=== PATIENT | female | born 1945 | race Caucasian/White ===

== ENCOUNTER 2018-09-18 08:05 | Observation (INO) | payer MEDICARE ==
[2018-09-18] MEDS ORDERED: SODIUM CHLORIDE 0.9% 1,000 ML IV STA ×2 (08:58→11:01)
--- NOTE | 2018-09-18 09:02 | ED ---
General Adult HPI - General Chief complaint: Recheck/Abnormal Lab/Rx Stated complaint: dehydration Time Seen by Provider: 09/18/18 08:18 Source: patient, family, RN notes reviewed Mode of arrival: wheelchair Limitations: no limitations - History of Present Illness Initial comments: Patient is a pleasant 72-year-old female presenting to the emergency department with family. Family has concerns for dehydration. Patient has been somewhat depressed since February when a family member left town. Family member left town to go to college. Patient has been not eating as much over the past couple of months and has been losing weight. Patient did go to the doctor last week. Blood work was drawn and patient was diagnosed with ear infection. Patient did start amoxicillin with improvement of symptoms of ear infection. Patient does admit to having decreased appetite. Patient denies any nausea or vomiting or abdominal pain. Patient was also started on an antidepressant. - Related Data Home Medications Medication Instructions Recorded Confirmed Cefdinir [Omnicef Oral Susp] 6 ml PO BID 09/18/18 09/18/18 Cetirizine HCl [Zyrtec] 10 mg PO HS 09/18/18 09/18/18 Ciprofloxacin-Dexameth [Ciprodex 4 drops BOTH EARS BID 09/18/18 09/18/18 Otic Susp] Escitalopram Oxalate [Lexapro] 10 mg PO HS 09/18/18 09/18/18 Timolol 0.5% Ophth Soln [Timoptic 1 drop LEFT EYE DAILY 09/18/18 09/18/18 0.5% Ophth Soln] Allergies Allergy/AdvReac Type Severity Reaction Status Date / Time ibuprofen Allergy Unknown Verified 09/18/18 09:06 Review of Systems ROS Statement: Those systems with pertinent positive or pertinent negative responses have been documented in the HPI. ROS Other: All systems not noted in ROS Statement are negative. Constitutional: Denies: fever Eyes: Denies: eye pain ENT: Denies: ear pain Respiratory: Denies: dyspnea Cardiovascular: Denies: chest pain Endocrine: Denies: fatigue Gastrointestinal: Denies: abdominal pain, vomiting Genitourinary: Denies: dysuria Musculoskeletal: Denies: back pain Skin: Denies: rash Neurological: Denies: weakness Psychiatric: Reports: depression Past Medical History Additional Past Medical History / Comment(s): cataracts History of Any Multi-Drug Resistant Organisms: None Reported Additional Past Surgical History / Comment(s): eye Past Psychological History: Anxiety, Depression Smoking Status: Never smoker Past Alcohol Use History: None Reported Past Drug Use History: None Reported General Exam Limitations: no limitations General appearance: alert, in no apparent distress Head exam: Present: atraumatic Eye exam: Present: normal appearance, PERRL, EOMI ENT exam: Present: normal oropharynx, TM's normal bilaterally Neck exam: Present: normal inspection Respiratory exam: Present: normal lung sounds bilaterally Cardiovascular Exam: Present: regular rate, normal rhythm Expanded Peripheral pulses: 2+: Radial (R), Radial (L), Dorsalis Pedis (R), Dorsalis Pedis (L) GI/Abdominal exam: Present: soft. Absent: tenderness Extremities exam: Present: normal inspection. Absent: pedal edema, calf tenderness Back exam: Present: normal inspection Neurological exam: Present: alert. Absent: motor sensory deficit Psychiatric exam: Present: normal affect, normal mood Skin exam: Present: normal color Course Vital Signs 09/18/18 09/18/18 09/18/18 08:06 09:47 10:00 Temperature 97.9 F Pulse Rate 121 H 93 Respiratory 18 Rate Blood Pressure 99/61 136/72 136/72 O2 Sat by Pulse 98 99 98 Oximetry 09/18/18 09/18/18 10:30 11:00 Temperature Pulse Rate 92 96 Respiratory Rate Blood Pressure 126/81 120/73 O2 Sat by Pulse 96 Oximetry EKG Findings - EKG Comments: EKG Findings:: Normal sinus rhythm and 93. NE 140. QRS 72. QT 352. QTC 437. Normal axis. Normal QRS. No acute ST change. Medical Decision Making - Medical Decision Making Patient reevaluated and resting comfortably in bed. Patient and family updated on results. Patient does have abnormal blood work and will need further evaluation with oncology. Please review previous lab orders regarding CA 125 and others. Case was discussed in detail with Dr. calvo, who will admit cover ing for Dr. Quinteros. Patient does meet sepsis criteria diagnosed at 11:20 AM. Blood culture and lactic acid and IV antibiotics have all been ordered. - Lab Data Result diagrams: 09/18/18 09:11 09/18/18 09:11 Lab Results 09/18/18 09/18/18 09/18/18 Range/Units 09:11 09:11 09:11 WBC 11.4 H (3.8-10.6) k/uL RBC 3.56 L (3.80-5.40) m/uL Hgb 10.2 L (11.4-16.0) gm/dL Hct 32.7 L (34.0-46.0) % MCV 91.9 (80.0-100.0) fL MCH 28.6 (25.0-35.0) pg MCHC 31.2 (31.0-37.0) g/dL RDW 17.3 H (11.5-15.5) % Plt Count 404 (150-450) k/uL Neutrophils % (Manual) 60 % Band Neutrophils % 2 % Lymphocytes % (Manual) 27 % Monocytes % (Manual) 3 % Metamyelocytes % 3 % Myelocytes % 5 % Blast Cells % 1 H* % Neutrophils # (Manual) 7.00 (1.3-7.7) k/uL Lymphocytes # (Manual) 3.08 (1.0-4.8) k/uL Monocytes # (Manual) 0.34 (0-1.0) k/uL Metamyelocytes # (Man) 0.34 H (0) k/uL Myelocytes # (Manual) 0.57 H (0) k/uL Blast Cells # (Man) 0.11 H (0) k/uL Nucleated RBCs 2 H (0-0) /100 WBC Manual Slide Review Performed Toxic Granulation Present Polychromasia Present Hypochromasia Moderate Poikilocytosis (manual Present Anisocytosis Slight PT (9.0-12.0) sec INR (<1.2) APTT (22.0-30.0) sec Sodium 140 (137-145) mmol/L Potassium 3.6 (3.5-5.1) mmol/L Chloride 104 (98-107) mmol/L Carbon Dioxide 29 (22-30) mmol/L Anion Gap 7 mmol/L BUN 17 (7-17) mg/dL Creatinine 0.46 L (0.52-1.04) mg/dL Est GFR (CKD-EPI)AfAm >90 (>60 ml/min/1.73 sqM) Est GFR (CKD-EPI)NonAf >90 (>60 ml/min/1.73 sqM) Glucose 112 H (74-99) mg/dL Plasma Lactic Acid Eusebio 2.9 H* (0.7-2.0) mmol/L Calcium 8.7 (8.4-10.2) mg/dL Phosphorus 2.5 (2.5-4.5) mg/dL Magnesium 2.2 (1.6-2.3) mg/dL Total Bilirubin 0.8 (0.2-1.3) mg/dL AST 94 H (14-36) U/L ALT 26 (9-52) U/L Alkaline Phosphatase 334 H (38-126) U/L Creatine Kinase 40 (30-135) U/L Troponin I (0.000-0.034) ng/mL Total Protein 5.7 L (6.3-8.2) g/dL Albumin 2.7 L (3.5-5.0) g/dL Amylase (30-110) U/L Lipase (23-300) U/L TSH 3.340 (0.465-4.680) mIU/L Free T4 1.68 (0.78-2.19) ng/dL Free T3 pg/mL 3.1 (2.8-5.3) pg/ml Urine Color Urine Appearance (Clear) Urine pH (5.0-8.0) Ur Specific [place] (1.001-1.035) Urine Protein (Negative) Urine Glucose (UA) (Negative) Urine Ketones (Negative) Urine Blood (Negative) Urine Nitrite (Negative) Urine Bilirubin (Negative) Urine Urobilinogen (<2.0) mg/dL Ur Leukocyte Esterase (Negative) Urine RBC (0-5) /hpf Urine WBC (0-5) /hpf Amorphous Sediment (None) /hpf Urine Bacteria (None) /hpf Hyaline Casts (0-2) /lpf Urine Mucus (None) /hpf 09/18/18 09/18/18 09/18/18 Range/Units 09:11 09:11 09:11 WBC (3.8-10.6) k/uL RBC (3.80-5.40) m/uL Hgb (11.4-16.0) gm/dL Hct (34.0-46.0) % MCV (80.0-100.0) fL MCH (25.0-35.0) pg MCHC (31.0-37.0) g/dL RDW (11.5-15.5) % Plt Count (150-450) k/uL Neutrophils % (Manual) % Band Neutrophils % % Lymphocytes % (Manual) % Monocytes % (Manual) % Metamyelocytes % % Myelocytes % % Blast Cells % % Neutrophils # (Manual) (1.3-7.7) k/uL Lymphocytes # (Manual) (1.0-4.8) k/uL Monocytes # (Manual) (0-1.0) k/uL Metamyelocytes # (Man) (0) k/uL Myelocytes # (Manual) (0) k/uL Blast Cells # (Man) (0) k/uL Nucleated RBCs (0-0) /100 WBC Manual Slide Review Toxic Granulation Polychromasia Hypochromasia Poikilocytosis (manual Anisocytosis PT 11.6 (9.0-12.0) sec INR 1.1 (<1.2) APTT 26.3 (22.0-30.0) sec Sodium (137-145) mmol/L Potassium (3.5-5.1) mmol/L Chloride (98-107) mmol/L Carbon Dioxide (22-30) mmol/L Anion Gap mmol/L BUN (7-17) mg/dL Creatinine (0.52-1.04) mg/dL Est GFR (CKD-EPI)AfAm (>60 ml/min/1.73 sqM) Est GFR (CKD-EPI)NonAf (>60 ml/min/1.73 sqM) Glucose (74-99) mg/dL Plasma Lactic Acid Eusebio (0.7-2.0) mmol/L Calcium (8.4-10.2) mg/dL Phosphorus (2.5-4.5) mg/dL Magnesium (1.6-2.3) mg/dL Total Bilirubin (0.2-1.3) mg/dL AST (14-36) U/L ALT (9-52) U/L Alkaline Phosphatase (38-126) U/L Creatine Kinase (30-135) U/L Troponin I <0.012 (0.000-0.034) ng/mL Total Protein (6.3-8.2) g/dL Albumin (3.5-5.0) g/dL Amylase 33 (30-110) U/L Lipase 158 (23-300) U/L TSH (0.465-4.680) mIU/L Free T4 (0.78-2.19) ng/dL Free T3 pg/mL (2.8-5.3) pg/ml Urine Color Urine Appearance (Clear) Urine pH (5.0-8.0) Ur Specific [place] (1.001-1.035) Urine Protein (Negative) Urine Glucose (UA) (Negative) Urine Ketones (Negative) Urine Blood (Negative) Urine Nitrite (Negative) Urine Bilirubin (Negative) Urine Urobilinogen (<2.0) mg/dL Ur Leukocyte Esterase (Negative) Urine RBC (0-5) /hpf Urine WBC (0-5) /hpf Amorphous Sediment (None) /hpf Urine Bacteria (None) /hpf Hyaline Casts (0-2) /lpf Urine Mucus (None) /hpf 09/18/18 Range/Units 09:45 WBC (3.8-10.6) k/uL RBC (3.80-5.40) m/uL Hgb (11.4-16.0) gm/dL Hct (34.0-46.0) % MCV (80.0-100.0) fL MCH (25.0-35.0) pg MCHC (31.0-37.0) g/dL RDW (11.5-15.5) % Plt Count (150-450) k/uL Neutrophils % (Manual) % Band Neutrophils % % Lymphocytes % (Manual) % Monocytes % (Manual) % Metamyelocytes % % Myelocytes % % Blast Cells % % Neutrophils # (Manual) (1.3-7.7) k/uL Lymphocytes # (Manual) (1.0-4.8) k/uL Monocytes # (Manual) (0-1.0) k/uL Metamyelocytes # (Man) (0) k/uL Myelocytes # (Manual) (0) k/uL Blast Cells # (Man) (0) k/uL Nucleated RBCs (0-0) /100 WBC Manual Slide Review Toxic Granulation Polychromasia Hypochromasia Poikilocytosis (manual Anisocytosis PT (9.0-12.0) sec INR (<1.2) APTT (22.0-30.0) sec Sodium (137-145) mmol/L Potassium (3.5-5.1) mmol/L Chloride (98-107) mmol/L Carbon Dioxide (22-30) mmol/L Anion Gap mmol/L BUN (7-17) mg/dL Creatinine (0.52-1.04) mg/dL Est GFR (CKD-EPI)AfAm (>60 ml/min/1.73 sqM) Est GFR (CKD-EPI)NonAf (>60 ml/min/1.73 sqM) Glucose (74-99) mg/dL Plasma Lactic Acid Eusebio (0.7-2.0) mmol/L Calcium (8.4-10.2) mg/dL Phosphorus (2.5-4.5) mg/dL Magnesium (1.6-2.3) mg/dL Total Bilirubin (0.2-1.3) mg/dL AST (14-36) U/L ALT (9-52) U/L Alkaline Phosphatase (38-126) U/L Creatine Kinase (30-135) U/L Troponin I (0.000-0.034) ng/mL Total Protein (6.3-8.2) g/dL Albumin (3.5-5.0) g/dL Amylase (30-110) U/L Lipase (23-300) U/L TSH (0.465-4.680) mIU/L Free T4 (0.78-2.19) ng/dL Free T3 pg/mL (2.8-5.3) pg/ml Urine Color Light [place] Urine Appearance Turbid H (Clear) Urine pH 5.5 (5.0-8.0) Ur Specific [place] 1.023 (1.001-1.035) Urine Protein 1+ H (Negative) Urine Glucose (UA) Negative (Negative) Urine Ketones Trace H (Negative) Urine Blood Negative (Negative) Urine Nitrite Negative (Negative) Urine Bilirubin Negative (Negative) Urine Urobilinogen <2.0 (<2.0) mg/dL Ur Leukocyte Esterase Large H (Negative) Urine RBC 3 (0-5) /hpf Urine WBC 24 H (0-5) /hpf Amorphous Sediment Many H (None) /hpf Urine Bacteria Rare H (None) /hpf Hyaline Casts 9 H (0-2) /lpf Urine Mucus Many H (None) /hpf - Radiology Data Radiology results: image reviewed (Chest x-ray shows no acute cardio pulmonary p rocess. Age indeterminate compression deformities mid and lower thoracic spine.) Critical Care Time Critical Care Time: Yes Total Critical Care Time: 33 Disposition Clinical Impression: Dehydration, UTI (urinary tract infection), Sepsis Disposition: ADMITTED IP TO THIS HOSP Is patient prescribed a controlled substance at d/c from ED?: No Referrals: Jude Pastrana MD [Primary Care Provider] - 1-2 days Decision Time: 11:55
--- NOTE | 2018-09-18 09:35 | XR ---
EXAMINATION TYPE: XR chest 2V DATE OF EXAM: 09/18/2018 COMPARISON: NONE HISTORY: Weakness TECHNIQUE: Frontal and lateral views of the chest are obtained. FINDINGS: There is no focal air space opacity, pleural effusion, or pneumothorax seen. Pulmonary hyp erinflation relates underlying COPD. The cardiac silhouette size is within normal limits. Compression deformity of the lower thoracic spine is age indeterminant with no priors for comparison. Compressio n deformity of the midthoracic spine is also age-indeterminate. IMPRESSION: 1. No acute cardiac pulmonary process. 2. Age-indeterminate compression deformities of the mid and lower thoracic spine. Correlation with po int tenderness is recommended as no priors are available for comparison.
[2018-09-18 09:39] LABS: INR 1.1 (<1.2); Partial Thromboplastin Time 26.3 sec (22.0-30.0); Prothrombin Time 11.6 sec (9.0-12.0)
[2018-09-18 09:41] LABS: ALT 26 U/L (9-52); AST 94 U/L (14-36); Albumin 2.7 g/dL (3.5-5.0); Alkaline Phosphatase 334 U/L (38-126); Anion Gap 7 mmol/L; Blood Urea Nitrogen 17 mg/dL (7-17); Calcium 8.7 mg/dL (8.4-10.2); Carbon Dioxide 29 mmol/L (22-30); Chloride 104 mmol/L (98-107); Creatine Kinase 40 U/L (30-135); Glucose 112 mg/dL (74-99); Magnesium 2.2 mg/dL (1.6-2.3); Phosphorus 2.5 mg/dL (2.5-4.5); Potassium 3.6 mmol/L (3.5-5.1); Sodium 140 mmol/L (137-145); Total Bilirubin 0.8 mg/dL (0.2-1.3); Total Protein 5.7 g/dL (6.3-8.2)
[2018-09-18 09:50] LABS: Anisocytosis Slight; HCT 32.7 % (34.0-46.0); HGB 10.2 gm/dL (11.4-16.0); Hypochromasia Moderate; MCH 28.6 pg (25.0-35.0); MCHC 31.2 g/dL (31.0-37.0); MCV 91.9 fL (80.0-100.0); Mean Platelet Volume 7.7; Platelet Count 404 k/uL (150-450); RBC 3.56 m/uL (3.80-5.40); RDW 17.3 % (11.5-15.5)
[2018-09-18 09:56] LABS: T4, Free (Free Thyroxine) 1.68 ng/dL (0.78-2.19)
[2018-09-18 10:19] LABS: Amylase 33 U/L (30-110); Lipase 158 U/L (23-300)
[2018-09-18 10:20] LABS: Band Neutrophils % 2 %; Blast Cells # (M) 0.11 k/uL (0); Lymphocytes # (M) 3.08 k/uL (1.0-4.8); Metamyelocytes # (M) 0.34 k/uL (0); Metamyelocytes % 3 %; Monocytes # (M) 0.34 k/uL (0-1.0); Myelocytes # (M) 0.57 k/uL (0); Myelocytes % 5 %; Neutrophils % (M) 60 %; Nucleated Red Blood Cells 2 /100 WBC (0-0); Total Cells Counted 200; WBC 11.4 k/uL (3.8-10.6)
[2018-09-18 10:52] LABS: Polychromasia Present
[2018-09-18 10:53] LABS: Toxic Granulation Present
[2018-09-18 10:54] LABS: Poikilocytosis (M) Present
[2018-09-18 10:55] LABS: Appearance,Urine Turbid (Clear); Bacteria,Urine Rare /hpf; Bilirubin,Urine Negative (Negative); Blood,Urine Negative (Negative); Color,Urine Light Orange; Glucose,Urine (UA) Negative (Negative); Hyaline Casts,Urine 9 /lpf (0-2); Ketones,Urine Trace (Negative); Leukocyte Esterase,Urine Large (Negative); Mucus,Urine Many /hpf; Nitrite,Urine Negative (Negative); PH, Urine 5.5 (5.0-8.0); Protein,Urine 1+ (Negative); RBC,Urine 3 /hpf (0-5); Specific Gravity,Urine 1.023 (1.001-1.035); Urobilinogen,Urine <2.0 mg/dL (<2.0); WBC,Urine 24 /hpf (0-5)
[2018-09-18 10:56] LABS: Amorphous Sediment,Urine Many /hpf
[2018-09-18] MEDS ORDERED: NALOXONE 0.4 MG/ML 1 ML VIAL IV PRN ×2 (11:56→17:45)
[2018-09-18] MEDS ORDERED: IOPAMIDOL-300 CONTRAST 30 ML VIAL (ORAL USE) PO PRN (11:59)
[2018-09-18] MEDS: SODIUM CHLORIDE 0.9% 1,000 ML IV SCH (12:57)
[2018-09-18] MEDS ORDERED: PNEUMOCOCCAL VACC-PNEUMOVAX 23 25 MCG/0.5 ML VIAL IM ONE (13:02)
--- NOTE | 2018-09-18 13:03 | CT ---
EXAMINATION TYPE: CT abdomen pelvis w con DATE OF EXAM: 09/18/2018 HISTORY: wt loss, generalized weakness CT DLP: 449.4mGycm Automated Exposure Control for Dose Reduction was Utilized. CONTRAST: CT scan of the abdomen and pelvis is performed with IV Contrast, patient injected with 100 mL of Isov ue 300. COMPARISON: None. FINDINGS: LUNG BASES: There are trace bilateral pleural effusions and associated compressive atelectasis.. LIVER/GB: Hepatic parenchyma is diffusely hypoattenuated in comparison to that of the spleen, most co mmonly seen in hepatic steatosis. This finding limits evaluation for hepatic masses. There appears to be areas of subcapsular geographic fatty sparing and more focal fatty infiltration near the fissure for the falciform ligament and a linear distribution. No gross evidence of hepatic mass is seen. No i ntrahepatic biliary ductal dilatation. Gallbladder contains a large peripherally calcified gallstone. PANCREAS: No significant abnormality is seen. SPLEEN: No significant abnormality is seen. Small probable splenule is seen anterior to the [place] sp rachael. ADRENALS: No significant abnormality is seen. KIDNEYS: There are bilateral renal sinus cysts and too small to accurately characterize subcentimeter hypoattenuated lesions. No hydronephrosis of either kidney. BOWEL: Small hiatal hernia seen. UTERUS/ADNEXA: Arterially enhancing approximately 1.7 cm myometrial mass impresses upon the endometri um. Prominent left pelvic varices are also noted. LYMPH NODES: No greater than 1cm abdominal or pelvic lymph nodes are appreciated. OSSEOUS STRUCTURES: Multilevel degenerative disc disease is mild. There is compression deformity with height loss of approximately 50% at T11 that appears sclerotic. Pathologic compression deformity is also. Indeterminant sclerotic foci are also seen of the inferior pubic ramus on the left on image 78, possibly sequela prior injury. Old healed fracture of the transverse processes L2 and L3 are seen. OTHER: There is a 2.3 x 1.9 cm area of hypoattenuation within the retroareolar right breast with maximino ed skin thickening measuring up to 7 mm. There is diffuse subtle haziness of the mesentery and within the body wall suggesting very mild and early anasarca and mesenteric congestion. IMPRESSION: 1. Findings concerning for breast carcinoma with skin thickening and ill-defined hypoattenuated 2.3 c m mass. Correlate with any prior radiation therapy would also creates unilateral skin thickening. 2. Arterial enhancing myometrial lesion. Differential includes arterial venous confirmation. Leiomyos arcoma or atypical leiomyoma. Ultrasound could initially further assess this finding. 3. Compression deformity of T12 is age-indeterminate but appears mildly sclerotic and could represent a pathologic deformity. MRI could assess for bone marrow replacing process. 4. Multiple other incidental findings as described above.
[2018-09-18 15:06] VITALS: BMI 16.6
[2018-09-18] MEDS ORDERED: ALPRAZolam 0.25 MG TAB PO PRN (17:46)
[2018-09-18] MEDS ORDERED: HYDROcodone/APAP 5-325MG 1 EACH TAB PO PRN (17:46)
[2018-09-18] MEDS ORDERED: ACETAMINOPHEN TAB 325 MG TAB PO PRN (17:46)
[2018-09-18] MEDS ORDERED: MELATONIN 3 MG TABLET PO PRN (17:46)
[2018-09-18] MEDS ORDERED: ONDANSETRON 4 MG/2 ML VIAL IVP PRN (17:46)
--- NOTE | 2018-09-18 17:48 | P.HPIM ---
History of Present Illness H&P Date: 09/18/18 Chief Complaint: fatigue Patient is a 72-year-old female with a past medical history of right eye retinal detachment who presented to the ER with complaints of fatigue and dehydration. In the ER she underwent an extensive evaluation. On arrival she was found to be tachycardic with a pulse of 121. Laboratory analysis showed a white blood cell count of 11.4, hemoglobin 10.2, platelets of 404 along with blast cells and myelocytes. Lactic acid was found to be slightly elevated at 2.9. AST and ALP slightly elevated at 334. Albumin low at 2.7. Urinalysis was consistent with possible urinary tract infection at 24 white blood cells. She underwent a CT abdomen and pelvis which showed findings with concern for breast carcinoma with skin thickening and ill-defined 2.3 cm mass, arterial enhancing myometrial lesion in the uterus, and compression deformity at T12. She was started on IV fluids and Rocephin with concerns for UTI developing sepsis. She was admitted for further monitoring. Patient seen and examined at bedside with daughters present. He reports that she has been struggling since February with some anxiety and depression related became bad in May. He reports that she's had a very low appetite. She's been eating mostly soup and a few bites of cereal every couple of days. She states she has been good about drinking water. She went and saw Aby at Dr. Pastrana's office was started on antidepressants 4 days ago which seemed to help. Prior to that she was having very low energy levels. She is overall been very weak and having difficulty ambulating the stairs and taking care of her activities of daily living. She complains of a dry mouth. Is having intermittent loose stools anytime she eats solid thing. She reports dark more concentrated urine over the last couple of days. She denies any chest pain, shortness of breath, strokelike symptoms. She is not having any dysuria. She reports no family history of breast cancer. The only family history of cancers in her father. She has never had a mammogram. Initially she did not come forth with this information and however on breast exam she was found to have a fungating mass on the right breast with ulceration. She states this happened about a month ago and started after she hit her breast into a wall. She states she did not mention this to Aby. However she was found to have an ear infection she was seen at Dr. Roberson's office and has been taking Cipro drops as well as Ceftin. On further questioning patient does have some back pain with movement. Review of Systems Pertinent positives and negatives as discussed in HPI, a complete review of systems was performed and all other systems are negative. Past Medical History Past Medical History: Eye Disorder Additional Past Medical History / Comment(s): Current bilateral ear infections, R eye cataract History of Any Multi-Drug Resistant Organisms: None Reported Additional Past Surgical History / Comment(s): L eye cataract removed-failed surgery and now has artificial retina. Additional Past Anesthesia/Blood Transfusion Reaction / Comment(s): Pt has never received general/spinal anesthesia. Smoking Status: Never smoker Past Alcohol Use History: None Reported Past Drug Use History: None Reported Additional History: Lives alone, doesn't drive, daughter comes out once a week to help her. No assistive devices. - Past Family History Mother Family Medical History: CVA/TIA, Hypertension Additional Family Medical History / Comment(s): Mother had 5 CVAs Father Family Medical History: Cancer Additional Family Medical History / Comment(s): Father had prostate cancer. Medications and Allergies Home Medications Medication Instructions Recorded Confirmed Type Cefdinir [Omnicef Oral Susp] 6 ml PO BID 09/18/18 09/18/18 History Cetirizine HCl [Zyrtec] 10 mg PO HS 09/18/18 09/18/18 History Ciprofloxacin-Dexameth [Ciprodex 4 drops BOTH EARS BID 09/18/18 09/18/18 History Otic Susp] Escitalopram Oxalate [Lexapro] 10 mg PO HS 09/18/18 09/18/18 History Timolol 0.5% Ophth Soln [Timoptic 1 drop LEFT EYE DAILY 09/18/18 09/18/18 History 0.5% Ophth Soln] Allergies Allergy/AdvReac Type Severity Reaction Status Date / Time ibuprofen Allergy Unknown Verified 09/18/18 09:06 Physical Exam Osteopathic Statement: *. No significant issues noted on an osteopathic structural exam other than those noted in the History and Physical/Consult. Vitals: Vital Signs Temp Pulse Resp BP Pulse Ox 09/18/18 13:00 97.8 F 90 18 108/89 96 09/18/18 12:00 86 115/66 97 09/18/18 11:30 87 129/80 09/18/18 11:00 96 120/73 96 09/18/18 10:30 92 126/81 09/18/18 10:00 93 136/72 98 09/18/18 09:47 136/72 99 09/18/18 08:06 97.9 F 121 H 18 99/61 98 Intake and Output 09/17/18 09/18/18 09/18/18 22:59 06:59 14:59 Intake Total 250 Balance 250 Intake: Intake, IV Titration 250 Amount Sodium Chloride 0.9% 1, 150 000 ml @ 75 mls/hr IV . [id number] [facility] Rx#:[id number] cefTRIAXone 1 gm In 100 Sodium Chloride 0.9% 50 ml @ 100 mls/hr IVPB Q24HR [facility] Rx#:[id number] Other: Weight 45.359 kg General: Cachectic, ill-appearing, appears older than stated age, no distress, Derm: Breast exam reveals right breast to be hard to palpation, nontender, grossly erythematous with large ulceration on the lateral portion, slight serous Drainage. It is not malodorous. no unusual ecchymoses, warm, dry Head: atraumatic, normocephalic, symmetric Eyes: EOMI, no lid lag, anicteric sclera, pupils equal round reactive to light ENT: Nose and ears atraumatic, no thrush, no pharyngeal erythema Neck: No thyromegaly, no cervical lymphadenopathy, trachea midline, supple Mouth: no lip lesion, mucus membranes dry, poor dentition Cardiovascular: S1S2 tachy, no murmur, positive posterior tibial pulse bilateral, no edema, capillary refill less than 2 seconds Lungs: CTA bilateral, no rhonchi, no rales , no accessory muscle use Abdominal: soft, nontender to palpation, no guarding, no appreciable organomegaly, normal bowel sounds Ext: no gross muscle atrophy, muscle strength 4 out of 5 in all 4 extremities grossly, no contractures, Neuro: CN II-XI grossly intact, light touch intact all 4 extremities, finger to nose within normal limits, Psych: Alert, oriented, flat affect Results CBC & Chem 7: 09/18/18 09:11 09/18/18 09:11 Labs: Abnormal Lab Results - Last 24 Hours (Table) 09/18/18 09/18/18 09/18/18 Range/Units 09:11 09:11 09:11 WBC 11.4 H (3.8-10.6) k/uL RBC 3.56 L (3.80-5.40) m/uL Hgb 10.2 L (11.4-16.0) gm/dL Hct 32.7 L (34.0-46.0) % RDW 17.3 H (11.5-15.5) % Blast Cells % 1 H* % Metamyelocytes # (Man) 0.34 H (0) k/uL Myelocytes # (Manual) 0.57 H (0) k/uL Blast Cells # (Man) 0.11 H (0) k/uL Nucleated RBCs 2 H (0-0) /100 WBC Creatinine 0.46 L (0.52-1.04) mg/dL Glucose 112 H (74-99) mg/dL Plasma Lactic Acid Eusebio 2.9 H* (0.7-2.0) mmol/L AST 94 H (14-36) U/L Alkaline Phosphatase 334 H (38-126) U/L Total Protein 5.7 L (6.3-8.2) g/dL Albumin 2.7 L (3.5-5.0) g/dL Urine Appearance (Clear) Urine Protein (Negative) Urine Ketones (Negative) Ur Leukocyte Esterase (Negative) Urine WBC (0-5) /hpf Amorphous Sediment (None) /hpf Urine Bacteria (None) /hpf Hyaline Casts (0-2) /lpf Urine Mucus (None) /hpf 09/18/18 09/18/18 Range/Units 09:45 14:05 WBC (3.8-10.6) k/uL RBC (3.80-5.40) m/uL Hgb (11.4-16.0) gm/dL Hct (34.0-46.0) % RDW (11.5-15.5) % Blast Cells % % Metamyelocytes # (Man) (0) k/uL Myelocytes # (Manual) (0) k/uL Blast Cells # (Man) (0) k/uL Nucleated RBCs (0-0) /100 WBC Creatinine (0.52-1.04) mg/dL Glucose (74-99) mg/dL Plasma Lactic Acid Eusebio 2.4 H* (0.7-2.0) mmol/L AST (14-36) U/L Alkaline Phosphatase (38-126) U/L Total Protein (6.3-8.2) g/dL Albumin (3.5-5.0) g/dL Urine Appearance Turbid H (Clear) Urine Protein 1+ H (Negative) Urine Ketones Trace H (Negative) Ur Leukocyte Esterase Large H (Negative) Urine WBC 24 H (0-5) /hpf Amorphous Sediment Many H (None) /hpf Urine Bacteria Rare H (None) /hpf Hyaline Casts 9 H (0-2) /lpf Urine Mucus Many H (None) /hpf CT scan - abdomen: report reviewed CT scan - pelvis: report reviewed Thrombosis Risk Factor Assmnt - DVT/VTE Prophylaxis DVT/VTE Prophylaxis: Pharmacologic Prophylaxis ordered - Choose All That Apply Any of the Below Risk Factors Present?: Yes Other Risk Factors: Yes Each Risk Factor Represents 2 Points: Age 61-74 years Other congenital or acquired thrombophilia - If yes, enter type in comment: No Thrombosis Risk Factor Assessment Total Risk Factor Score: 2 Thrombosis Risk Factor Assessment Level: Low Risk Assessment and Plan Assessment: UTI, POA - may be culture negative as was on abx as outpatient -Continue with Rocephin -Await cultures Large breast mass right chest wall, T12 compression deformity, uterine lesion -Discussed with Dr. Gonsales will perform a bedside biopsy in the morning -Discussed with Erin Green NP with oncology. They will evaluate patient in a.m. Will consider MRI versus bone scan for T12 compression deformity. -Pain control -Keep wound covered -Does not appear infected to myself but is already on Rocephin will continue to monitor. Elevated lactic acid -Likely reflective of suspected metastatic disease and not sepsis -IV fluids and continue to try and Clinical dehydration as evidenced by dry mucous membranes -IV fluid hydration -Encourage oral intake Severe protein calorie malnutrition with albumin 3.7 -Dietitian consultation -Encourage by mouth intake -Supplements Anemia with myelocytes present -Discussed with pathology and concern is for space-occupying lesion such as infiltration of the bone marrow with metastasis or myelodysplastic syndrome -Repeat CBC in a.m. -Pathology does recommend bone marrow biopsy and I'll defer this to oncology secondary to her other constellation of symptoms Elevated AST and alkaline phosphatase -Likely secondary to suspected metastatic disease -We'll repeat in a.m. -No abnormality seen on CT The patient is placed in observation with an anticipated greater than 2 midnight stay for evaluation of UTI and probable metastatic breast cancer. Surrogate decision-maker: Daughter- Ivette CODE STATUS: Patient has a living will and is a DNR, family is aware that this is her wishes DVT prophylaxis: SCDs, lovenox after biopsy Discussed with: Patient, family, nursing, Dr. Gonsales, Erin Green, ELISA Anticipated discharge date: 2-[address]: home with home health A total of 65 minutes was spent on the care of this complex patient more than 50% of the time was spent in counseling and care coordination.
[2018-09-18] MEDS: LORATADINE 10 MG TAB PO SCH (21:38)
[2018-09-18] MEDS: ESCITALOPRAM 10 MG TAB PO SCH (21:38)
[2018-09-18] MEDS: CIPROFLOXACIN-DEXAMETH 0.3-0.1% DROPS 7.5 ML BTL BOTH EARS SCH (21:39)
[2018-09-19] MEDS: SODIUM CHLORIDE 0.9% 1,000 ML IV SCH ×2 (01:25→09:22)
[2018-09-19 07:18] LABS: Anion Gap 5 mmol/L; Blood Urea Nitrogen 11 mg/dL (7-17); Calcium 7.7 mg/dL (8.4-10.2); Carbon Dioxide 25 mmol/L (22-30); Chloride 111 mmol/L (98-107); Glucose 80 mg/dL (74-99); Potassium 3.3 mmol/L (3.5-5.1); Sodium 141 mmol/L (137-145)
[2018-09-19] MEDS ORDERED: POTASSIUM CHLORIDE ER 20 MEQ TAB.ER PO STA (07:31)
[2018-09-19 07:54] LABS: Anisocytosis Slight; HCT 26.4 % (34.0-46.0); Hypochromasia Marked; MCH 29.4 pg (25.0-35.0); MCHC 31.4 g/dL (31.0-37.0); MCV 93.4 fL (80.0-100.0); Mean Platelet Volume 7.5; Platelet Count 314 k/uL (150-450); RBC 2.83 m/uL (3.80-5.40); RDW 17.3 % (11.5-15.5)
[2018-09-19 07:56] LABS: HGB 8.3 gm/dL (11.4-16.0)
--- NOTE | 2018-09-19 08:30 | P.PN ---
Subjective Progress Note Date: 09/19/18 Principal diagnosis: fatigue Patient is a 72-year-old female with a past medical history of right eye retinal detachment who presented to the ER with complaints of fatigue and dehydration. In the ER she underwent an extensive evaluation. On arrival she was found to be tachycardic with a pulse of 121. Laboratory analysis showed a white blood cell count of 11.4, hemoglobin 10.2, platelets of 404 along with blast cells and myelocytes. Lactic acid was found to be slightly elevated at 2.9. AST and ALP slightly elevated at 334. Albumin low at 2.7. Urinalysis was consistent with possible urinary tract infection at 24 white blood cells. She underwent a CT abdomen and pelvis which showed findings with concern for breast carcinoma with skin thickening and ill-defined 2.3 cm mass, arterial enhancing myometrial lesion in the uterus, and compression deformity at T12. She was started on IV fluids and Rocephin with concerns for UTI developing sepsis. She was admitted for further monitoring.On physiocal exam she has a large fungating, ulcerated breast mass on the right breast. CBC showed increased blast cell. Oncology was contacted. Plan is for breast biopsy today at bedside. Patient seen and examined at bedside. She is feeling much better after IV fluid s. She has been up and walking with physical therapy. She states appetite is still poor but has been drinking some ensure. She is denying any back pain but needed alot of pillows in bed to be comfortable last night. No cough, SOB, chest pain. No nausea or vomiting. Objective - Vital Signs Vital signs: Vital Signs Temp 97.5 F L 09/19/18 04:00 Pulse 96 09/19/18 04:00 Resp 20 09/19/18 04:00 BP 117/58 09/19/18 04:00 Pulse Ox 95 09/19/18 04:00 Intake & Output 09/18/18 09/19/18 09/19/18 18:59 06:59 18:59 Intake Total 460 830 Balance 460 830 Weight 45.359 kg 45.2 kg Intake: Intake, IV Titration 250 600 Amount Sodium Chloride 0.9% 1, 150 600 000 ml @ 120 mls/hr IV . Q8H20M [facility] Rx#:[id number] cefTRIAXone 1 gm In 100 Sodium Chloride 0.9% 50 ml @ 100 mls/hr IVPB Q24HR [facility] Rx#:[id number] Oral 210 230 Other: Voiding Method Toilet Toilet # Voids 2 - Exam General: non toxic, no distress, appears older than stated age, cachetic Derm: ulcerated hardened breast mass unvoloving greater than 50% right breast, warm, dry Head: atraumatic, normocephalic, symmetric Eyes: EOMI, no lid lag, anicteric sclera Mouth: no lip lesion, mucus membranes moist Cardiovascular: S1S2 reg, no murmur, positive posterior tibial pulse bilateral, Lungs: CTA bilateral, no rhonchi, no rales , no accessory muscle use Abdominal: soft, nontender to palpation, no guarding, no appreciable or ganomegaly Ext: no gross muscle atrophy, no edema, no contractures Neuro: CN II-XI grossly intact, no focal neuro deficits Psych: Alert, oriented, appropriate affect - Labs CBC & Chem 7: 09/19/18 06:32 09/19/18 06:32 Labs: Abnormal Lab Results - Last 24 Hours (Table) 09/18/18 09/18/18 09/18/18 Range/Units 09:11 09:11 09:11 WBC 11.4 H (3.8-10.6) k/uL RBC 3.56 L (3.80-5.40) m/uL Hgb 10.2 L (11.4-16.0) gm/dL Hct 32.7 L (34.0-46.0) % RDW 17.3 H (11.5-15.5) % Blast Cells % 1 H* % Metamyelocytes # (Man) 0.34 H (0) k/uL Myelocytes # (Manual) 0.57 H (0) k/uL Blast Cells # (Man) 0.11 H (0) k/uL Nucleated RBCs 2 H (0-0) /100 WBC Pathologist Review See comment A Potassium (3.5-5.1) mmol/L Chloride (98-107) mmol/L Creatinine 0.46 L (0.52-1.04) mg/dL Glucose 112 H (74-99) mg/dL Plasma Lactic Acid Eusebio 2.9 H* (0.7-2.0) mmol/L Calcium (8.4-10.2) mg/dL AST 94 H (14-36) U/L Alkaline Phosphatase 334 H (38-126) U/L Total Protein 5.7 L (6.3-8.2) g/dL Albumin 2.7 L (3.5-5.0) g/dL Urine Appearance (Clear) Urine Protein (Negative) Urine Ketones (Negative) Ur Leukocyte Esterase (Negative) Urine WBC (0-5) /hpf Amorphous Sediment (None) /hpf Urine Bacteria (None) /hpf Hyaline Casts (0-2) /lpf Urine Mucus (None) /hpf 09/18/18 09/18/18 09/19/18 Range/Units 09:45 14:05 06:32 WBC (3.8-10.6) k/uL RBC 2.83 L (3.80-5.40) m/uL Hgb 8.3 L D (11.4-16.0) gm/dL Hct 26.4 L (34.0-46.0) % RDW 17.3 H (11.5-15.5) % Blast Cells % % Metamyelocytes # (Man) (0) k/uL Myelocytes # (Manual) (0) k/uL Blast Cells # (Man) (0) k/uL Nucleated RBCs (0-0) /100 WBC Pathologist Review Potassium (3.5-5.1) mmol/L Chloride (98-107) mmol/L Creatinine (0.52-1.04) mg/dL Glucose (74-99) mg/dL Plasma Lactic Acid Eusebio 2.4 H* (0.7-2.0) mmol/L Calcium (8.4-10.2) mg/dL AST (14-36) U/L Alkaline Phosphatase (38-126) U/L Total Protein (6.3-8.2) g/dL Albumin (3.5-5.0) g/dL Urine Appearance Turbid H (Clear) Urine Protein 1+ H (Negative) Urine Ketones Trace H (Negative) Ur Leukocyte Esterase Large H (Negative) Urine WBC 24 H (0-5) /hpf Amorphous Sediment Many H (None) /hpf Urine Bacteria Rare H (None) /hpf Hyaline Casts 9 H (0-2) /lpf Urine Mucus Many H (None) /hpf 09/19/18 Range/Units 06:32 WBC (3.8-10.6) k/uL RBC (3.80-5.40) m/uL Hgb (11.4-16.0) gm/dL Hct (34.0-46.0) % RDW (11.5-15.5) % Blast Cells % % Metamyelocytes # (Man) (0) k/uL Myelocytes # (Manual) (0) k/uL Blast Cells # (Man) (0) k/uL Nucleated RBCs (0-0) /100 WBC Pathologist Review Potassium 3.3 L (3.5-5.1) mmol/L Chloride 111 H (98-107) mmol/L Creatinine 0.37 L (0.52-1.04) mg/dL Glucose (74-99) mg/dL Plasma Lactic Acid Eusebio (0.7-2.0) mmol/L Calcium 7.7 L (8.4-10.2) mg/dL AST (14-36) U/L Alkaline Phosphatase (38-126) U/L Total Protein (6.3-8.2) g/dL Albumin (3.5-5.0) g/dL Urine Appearance (Clear) Urine Protein (Negative) Urine Ketones (Negative) Ur Leukocyte Esterase (Negative) Urine WBC (0-5) /hpf Amorphous Sediment (None) /hpf Urine Bacteria (None) /hpf Hyaline Casts (0-2) /lpf Urine Mucus (None) /hpf Microbiology - Last 24 Hours (Table) 09/18/18 09:45 Urine Culture - Preliminary Urine,Voided Assessment and Plan Assessment: UTI, POA - may be culture negative as was on abx as outpatient -Continue with Rocephin -Await cultures Large breast mass right chest wall, T12 compression deformity, uterine lesion - Dr. Gonsales Consulted plan is for biopsy this morning - Consult oncology for further recommendations -Pain control -Keep wound covered with ABD pad, don't apply anything as plan is for biopsy today -Does not appear infected to myself but is already on Rocephin will continue to monitor. Elevated lactic acid, improving -Likely reflective of suspected metastatic disease and not sepsis -No need to recheck further - IV fluids Severe protein calorie malnutrition with albumin 3.7 -Dietitian consultation -Encourage by mouth intake -Supplements Anemia with myelocytes present -Discussed with pathology and concern is for space-occupying lesion such as infiltration of the bone marrow with metastasis or myelodysplastic syndrome -Repeat CBC in a.m. -Pathology does recommend bone marrow biopsy and I'll defer this to oncology secondary to her other constellation of symptoms Elevated AST and alkaline phosphatase -Likely secondary to suspected metastatic disease -We'll repeat in a.m. -No abnormality seen on CT in liver/gallbladder Clinical dehydration as evidenced by dry mucous membranes, improved -IV fluid hydration -Encourage oral intake DVT prophylaxis: SCDs, lovenox after biopsy Discussed with: Patient, family, nursing Anticipated discharge date: in [place] Anticipated discharge place: home with home health A total of 25 minutes was spent on the care of this complex patient more than 50% of the time was spent in counseling and care coordination.
[2018-09-19] MEDS: CIPROFLOXACIN-DEXAMETH 0.3-0.1% DROPS 7.5 ML BTL BOTH EARS SCH ×2 (09:22→19:47)
[2018-09-19] MEDS: TIMOLOL 0.5% OPHTH DROPS 5 ML BTL LEFT EYE SCH (09:22)
[2018-09-19 10:33] LABS: Band Neutrophils % 2 %; Myelocytes % 5 %; Neutrophils % (M) 61 %; Nucleated Red Blood Cells 3 /100 WBC (0-0); Promyelocytes % 1 %; Total Cells Counted 200
[2018-09-19 10:34] LABS: Eosinophils # (M) 0.08 k/uL (0-0.7); Lymphocytes # (M) 2.18 k/uL (1.0-4.8); Myelocytes # (M) 0.42 k/uL (0); Promyelocytes # (M) 0.08 k/uL (0); WBC 8.4 k/uL (3.8-10.6)
[2018-09-19 10:35] LABS: Poikilocytosis (M) Present
--- NOTE | 2018-09-19 11:58 | P.GSCN ---
History of Present Illness Consult date: 09/18/18 Reason for Consult: Large right breast mass Requesting physician: Irma Girard History of present illness: CHIEF COMPLAINT: Large right breast mass HISTORY OF PRESENT ILLNESS: 72-year-old female who was admitted to the hospital for chief complaint of dehydration and fatigue. General surgery was consulted for further evaluation of right breast mass. Patient states she has had the mass for over a month. She reports it is tender to palpation. Patient denies fevers. She denies drainage of right breast. PAST MEDICAL HISTORY: See list. PAST SURGICAL HISTORY: See list. SOCIAL HISTORY: No illicit drug use. REVIEW OF SYSTEMS: CONSTITUTIONAL: Denies fever or chills. HEENT: Denies blurred vision, vision changes, or eye pain. Denies hemoptysis CARDIOVASCULAR: Denies chest pain or pressure. RESPIRATORY: No shortness of breath. GASTROINTESTINAL: Denies constipation or diarrhea. Denies abdominal pain. HEMATOLOGIC: Denies bleeding disorders. GENITOURINARY: Denies any blood in urine. SKIN: Reports mass to right breast. Denies pruitis. Denies rash. PHYSICAL EXAM: VITAL SIGNS: Reviewed. GENERAL: Well-developed in no acute distress. HEENT: No sclera icterus. Extraocular movements grossly intact. Moist buccal mucosa. Head is atraumatic, normocephalic. ABDOMEN: Soft. Nondistended. Nontender. NEUROLOGIC: Alert and oriented. Cranial nerves II through XII grossly intact. SKIN: Right breast very firm with ulcerated region to lateral aspect. Serous drainage. Covered with gauze. IMAGING: CT abdomen and pelvis: Findings concerning for breast carcinoma with skin thickening and ill-defined hypoattenuated 2.3 cm mass. ASSESSMENT: 1. Right breast mass, CT concerning for carcinoma PLAN: Patient will undergo bedside biopsy of right breast tomorrow by Dr. Gonsales. Patient agreeable. Nurse practitioner note has been reviewed by physician. Signing provider agrees with the documented findings, assessment, and plan of care. Past Medical History Past Medical History: Eye Disorder Additional Past Medical History / Comment(s): Current bilateral ear infections, R eye cataract History of Any Multi-Drug Resistant Organisms: None Reported Additional Past Surgical History / Comment(s): L eye cataract removed-failed surgery and now has artificial retina. Additional Past Anesthesia/Blood Transfusion Reaction / Comm: Pt has never received general/spinal anesthesia. Smoking Status: Never smoker Past Alcohol Use History: None Reported Past Drug Use History: None Reported - Past Family History Mother Family Medical History: CVA/TIA, Hypertension Additional Family Medical History / Comment(s): Mother had 5 CVAs Father Family Medical History: Cancer Additional Family Medical History / Comment(s): Father had prostate cancer. Medications and Allergies Home Medications Medication Instructions Recorded Confirmed Type Cefdinir [Omnicef Oral Susp] 6 ml PO BID 09/18/18 09/18/18 History Cetirizine HCl [Zyrtec] 10 mg PO HS 09/18/18 09/18/18 History Ciprofloxacin-Dexameth [Ciprodex 4 drops BOTH EARS BID 09/18/18 09/18/18 History Otic Susp] Escitalopram Oxalate [Lexapro] 10 mg PO HS 09/18/18 09/18/18 History Timolol 0.5% Ophth Soln [Timoptic 1 drop LEFT EYE DAILY 09/18/18 09/18/18 Hist ory 0.5% Ophth Soln] Allergies Allergy/AdvReac Type Severity Reaction Status Date / Time ibuprofen Allergy Unknown Verified 09/18/18 09:06 Surgical - Exam Vital Signs Temp Pulse Resp BP Pulse Ox 97.9 F 121 H 18 99/61 98 09/18/18 08:06 09/18/18 08:06 09/18/18 08:06 09/18/18 08:06 09/18/18 08:06 Results - Labs 09/19/18 06:32 09/19/18 06:32 Abnormal Lab Results - Last 24 Hours (Table) 09/18/18 09/18/18 09/18/18 Range/Units 09:11 09:11 09:11 WBC 11.4 H (3.8-10.6) k/uL RBC 3.56 L (3.80-5.40) m/uL Hgb 10.2 L (11.4-16.0) gm/dL Hct 32.7 L (34.0-46.0) % RDW 17.3 H (11.5-15.5) % Blast Cells % 1 H* % Metamyelocytes # (Man) 0.34 H (0) k/uL Myelocytes # (Manual) 0.57 H (0) k/uL Blast Cells # (Man) 0.11 H (0) k/uL Nucleated RBCs 2 H (0-0) /100 WBC Pathologist Review See comment A Potassium (3.5-5.1) mmol/L Chloride (98-107) mmol/L Creatinine 0.46 L (0.52-1.04) mg/dL Glucose 112 H (74-99) mg/dL Plasma Lactic Acid Eusebio 2.9 H* (0.7-2.0) mmol/L Calcium (8.4-10.2) mg/dL AST 94 H (14-36) U/L Alkaline Phosphatase 334 H (38-126) U/L Total Protein 5.7 L (6.3-8.2) g/dL Albumin 2.7 L (3.5-5.0) g/dL Urine Appearance (Clear) Urine Protein (Negative) Urine Ketones (Negative) Ur Leukocyte Esterase (Negative) Urine WBC (0-5) /hpf Amorphous Sediment (None) /hpf Urine Bacteria (None) /hpf Hyaline Casts (0-2) /lpf Urine Mucus (None) /hpf 09/18/18 09/18/18 09/19/18 Range/Units 09:45 14:05 06:32 WBC (3.8-10.6) k/uL RBC 2.83 L (3.80-5.40) m/uL Hgb 8.3 L D (11.4-16.0) gm/dL Hct 26.4 L (34.0-46.0) % RDW 17.3 H (11.5-15.5) % Blast Cells % % Metamyelocytes # (Man) (0) k/uL Myelocytes # (Manual) (0) k/uL Blast Cells # (Man) (0) k/uL Nucleated RBCs (0-0) /100 WBC Pathologist Review Potassium (3.5-5.1) mmol/L Chloride (98-107) mmol/L Creatinine (0.52-1.04) mg/dL Glucose (74-99) mg/dL Plasma Lactic Acid Eusebio 2.4 H* (0.7-2.0) mmol/L Calcium (8.4-10.2) mg/dL AST (14-36) U/L Alkaline Phosphatase (38-126) U/L Total Protein (6.3-8.2) g/dL Albumin (3.5-5.0) g/dL Urine Appearance Turbid H (Clear) Urine Protein 1+ H (Negative) Urine Ketones Trace H (Negative) Ur Leukocyte Esterase Large H (Negative) Urine WBC 24 H (0-5) /hpf Amorphous Sediment Many H (None) /hpf Urine Bacteria Rare H (None) /hpf Hyaline Casts 9 H (0-2) /lpf Urine Mucus Many H (None) /hpf 09/19/18 Range/Units 06:32 WBC (3.8-10.6) k/uL RBC (3.80-5.40) m/uL Hgb (11.4-16.0) gm/dL Hct (34.0-46.0) % RDW (11.5-15.5) % Blast Cells % % Metamyelocytes # (Man) (0) k/uL Myelocytes # (Manual) (0) k/uL Blast Cells # (Man) (0) k/uL Nucleated RBCs (0-0) /100 WBC Pathologist Review Potassium 3.3 L (3.5-5.1) mmol/L Chloride 111 H (98-107) mmol/L Creatinine 0.37 L (0.52-1.04) mg/dL Glucose (74-99) mg/dL Plasma Lactic Acid Eusebio (0.7-2.0) mmol/L Calcium 7.7 L (8.4-10.2) mg/dL AST (14-36) U/L Alkaline Phosphatase (38-126) U/L Total Protein (6.3-8.2) g/dL Albumin (3.5-5.0) g/dL Urine Appearance (Clear) Urine Protein (Negative) Urine Ketones (Negative) Ur Leukocyte Esterase (Negative) Urine WBC (0-5) /hpf Amorphous Sediment (None) /hpf Urine Bacteria (None) /hpf Hyaline Casts (0-2) /lpf Urine Mucus (None) /hpf Microbiology - Last 24 Hours (Table) 09/18/18 09:45 Urine Culture - Preliminary Urine,Voided Diabetes panel 09/18/18 09/19/18 Range/Units 09:11 06:32 Sodium 140 141 (137-145) mmol/L Potassium 3.6 3.3 L (3.5-5.1) mmol/L Chloride 104 111 H (98-107) mmol/L Carbon Dioxide 29 25 (22-30) mmol/L BUN 17 11 (7-17) mg/dL Creatinine 0.46 L 0.37 L (0.52-1.04) mg/dL Glucose 112 H 80 (74-99) mg/dL Calcium 8.7 7.7 L (8.4-10.2) mg/dL AST 94 H (14-36) U/L ALT 26 (9-52) U/L Alkaline Phosphatase 334 H (38-126) U/L Total Protein 5.7 L (6.3-8.2) g/dL Albumin 2.7 L (3.5-5.0) g/dL Thyroid panel 09/18/18 Range/Units 09:11 TSH 3.340 (0.465-4.680) mIU/L Calcium panel 09/18/18 09/19/18 Range/Units 09:11 06:32 Calcium 8.7 7.7 L (8.4-10.2) mg/dL Phosphorus 2.5 (2.5-4.5) mg/dL Albumin 2.7 L (3.5-5.0) g/dL Pituitary panel 09/18/18 09/19/18 Range/Units 09:11 06:32 Sodium 140 141 (137-145) mmol/L Potassium 3.6 3.3 L (3.5-5.1) mmol/L Chloride 104 111 H (98-107) mmol/L Carbon Dioxide 29 25 (22-30) mmol/L BUN 17 11 (7-17) mg/dL Creatinine 0.46 L 0.37 L (0.52-1.04) mg/dL Glucose 112 H 80 (74-99) mg/dL Calcium 8.7 7.7 L (8.4-10.2) mg/dL TSH 3.340 (0.465-4.680) mIU/L Adrenal panel 09/18/18 09/19/18 Range/Units 09:11 06:32 Sodium 140 141 (137-145) mmol/L Potassium 3.6 3.3 L (3.5-5.1) mmol/L Chloride 104 111 H (98-107) mmol/L Carbon Dioxide 29 25 (22-30) mmol/L BUN 17 11 (7-17) mg/dL Creatinine 0.46 L 0.37 L (0.52-1.04) mg/dL Glucose 112 H 80 (74-99) mg/dL Calcium 8.7 7.7 L (8.4-10.2) mg/dL Total Bilirubin 0.8 (0.2-1.3) mg/dL AST 94 H (14-36) U/L ALT 26 (9-52) U/L Alkaline Phosphatase 334 H (38-126) U/L Total Protein 5.7 L (6.3-8.2) g/dL Albumin 2.7 L (3.5-5.0) g/dL
[2018-09-19] MEDS ORDERED: RX INFO: IV CONTRAST WAS GIVEN 1 EACH MISC MISCELLANE PRN (12:48)
--- NOTE | 2018-09-19 12:55 | P.CONS ---
History of Present Illness - Reason for Consult Consult date: 09/19/18 Breast Mass, abnormal CBC, Failure to thrive - History of Present Illness The patient is a 72-year-old white female, who according to her family has been fairly healthy until about 3-4 months ago. The patient has a known history of underlying anxiety and depression. After an eye surgery in 03/14, the patient 's appetite seemed to decline, along with decrease in oral intake. Family initially attributed this to her underlying depression. However since late 2017, the decrease in oral intake became much more marked, with progressive weight loss. According to the family, the patient lost about 50+ pounds since 06/13. The patient had been getting progressively weaker, due to which she was brought to the ER. In the ER she appears to be clinically dehydrated. She had a CT of the abdomen and pelvis, which showed some diffuse abnormality of the liver parenchyma felt to be compatible with steatosis though no discrete masses. Incidentally at 2.3 x 1.9 cm mass was noted in the right breast, with evidence of skin involvement. The patient had not brought this to anyone the tension, but after the CAT scan, and an exam that revealed a hard fixed mass with superficial ulceration. She stated to me that she had noted abnormality in her right breast about 2 months before with progression since. She has never had a mammogram before. Other notable findings included anemia, with marked left shift on WBC including a small percentage of blasts. CT of the abdomen and pelvis had incidentally also revealed a T11 compression, with metastatic involvement not ruled out. Consult was therefore placed for further evaluation and recommendations. She denied any prior history of malignancy. Had any history of smoking or excessive alcohol use. Review of Systems Constitutional: Reports fatigue, Reports poor appetite, Reports weakness, Reports weight loss Eyes: left decreased vision (Known retinal detachment), denies blurred vision, denies pain Ears: deny: decreased hearing, ear discharge, earache, tinnitus Ears, nose, mouth and throat: Denies headache, Denies sore throat Breasts: right: as per HPI, masses, skin changes Cardiovascular: Reports decreased exercise tolerance Respiratory: Denies cough Gastrointestinal: Reports loss of appetite, Denies abdominal pain, Denies diarrhea, Denies nausea, Denies vomiting Genitourinary: Denies dysuria, Denies hematuria Menstruation: Reports postmenopausal Musculoskeletal: Reports muscle weakness, Denies myalgias Integumentary: Reports lesions (rt breast , as described) Neurological: Reports weakness, Denies numbness Psychiatric: Reports anxiety, Reports depression Endocrine: Reports fatigue, Reports weight change Hematologic/Lymphatic: Reports as per HPI Past Medical History Past Medical History: Eye Disorder Additional Past Medical History / Comment(s): Current bilateral ear infections, R eye cataract History of Any Multi-Drug Resistant Organisms: None Reported Additional Past Surgical History / Comment(s): L eye cataract removed-failed surgery and now has artificial retina. Additional Past Anesthesia/Blood Transfusion Reaction / Comm: Pt has never received general/spinal anesthesia. Smoking Status: Never smoker Past Alcohol Use History: None Reported Past Drug Use History: None Reported - Past Family History Mother Family Medical History: CVA/TIA, Hypertension Additional Family Medical History / Comment(s): Mother had 5 CVAs Father Family Medical History: Cancer Additional Family Medical History / Comment(s): Father had prostate cancer. Medications and Allergies Home Medications Medication Instructions Recorded Confirmed Type Cefdinir [Omnicef Oral Susp] 6 ml PO BID 09/18/18 09/18/18 History Cetirizine HCl [Zyrtec] 10 mg PO HS 09/18/18 09/18/18 History Ciprofloxacin-Dexameth [Ciprodex 4 drops BOTH EARS BID 09/18/18 09/18/18 History Otic Susp] Escitalopram Oxalate [Lexapro] 10 mg PO HS 09/18/18 09/18/18 History Timolol 0.5% Ophth Soln [Timoptic 1 drop LEFT EYE DAILY 09/18/18 09/18/18 History 0.5% Ophth Soln] Allergies Allergy/AdvReac Type Severity Reaction Status Date / Time ibuprofen Allergy Unknown Verified 09/18/18 09:06 Physical Exam Vitals: Vital Signs Temp Pulse Pulse Resp BP BP Pulse Ox 09/19/18 08:00 97.1 F L 96 16 119/64 95 09/19/18 04:00 97.5 F L 96 20 117/58 95 09/19/18 03:46 20 09/19/18 00:00 97.4 F L 100 18 120/60 95 09/18/18 20:00 97.9 F 96 20 120/66 94 L 09/18/18 15:21 97.1 F L 66 16 123/69 96 09/18/18 13:00 97.8 F 90 18 108/89 96 Intake and Output 09/18/18 09/19/18 09/19/18 22:59 06:59 14:59 Intake Total 560 480 Output Total 400 Balance 560 480 -400 Intake: Intake, IV Titration 120 480 Amount Sodium Chloride 0.9% 1, 120 480 000 ml @ 120 mls/hr IV . Q8H20M [facility] Rx#:[id number] Oral 440 Output: Urine 400 Other: Voiding Method Toilet Toilet # Voids 1 2 Weight 45.2 kg - Constitutional General appearance: no acute distress - EENT Eyes: EOMI, PERRLA ENT: hearing grossly normal, normal oropharynx - Neck Neck: no lymphadenopathy - Respiratory Respiratory: bilateral: CTA - Cardiovascular Rhythm: regular Heart sounds: normal: S1, S2 - Gastrointestinal General gastrointestinal: normal bowel sounds, soft - Integumentary Integumentary: ulcer (Of overlying skin of the right breast mass) - Neurologic Neurologic: CNII-XII intact - Musculoskeletal Musculoskeletal: generalized weakness, strength equal bilaterally - Psychiatric Psychiatric: A&O x's 3, appropriate affect Breasts examined in presence of female RN. Obvious mass in the retroareolar region of the right breast, with overlying hyperpigmentation, and induration of the skin as well as shallow ulcer. Mass is hard and fixed to the skin, and also partially to underlying tissue. It is not mobile. About 4 cm in size. Overlying skin appears to be involved.. Left breast normal. Results CBC & Chem 7: 09/19/18 06:32 09/19/18 06:32 Labs: Abnormal Lab Results - Last 24 Hours (Table) 09/18/18 09/18/18 09/19/18 Range/Units 09:11 14:05 06:32 RBC 2.83 L (3.80-5.40) m/uL Hgb 8.3 L D (11.4-16.0) gm/dL Hct 26.4 L (34.0-46.0) % RDW 17.3 H (11.5-15.5) % Myelocytes # (Manual) 0.42 H (0) k/uL Promyelocytes # (Man) 0.08 H (0) k/uL Nucleated RBCs 3 H (0-0) /100 WBC Pathologist Review See comment A Potassium (3.5-5.1) mmol/L Chloride (98-107) mmol/L Creatinine (0.52-1.04) mg/dL Plasma Lactic Acid Eusebio 2.4 H* (0.7-2.0) mmol/L Calcium (8.4-10.2) mg/dL 09/19/18 Range/Units 06:32 RBC (3.80-5.40) m/uL Hgb (11.4-16.0) gm/dL Hct (34.0-46.0) % RDW (11.5-15.5) % Myelocytes # (Manual) (0) k/uL Promyelocytes # (Man) (0) k/uL Nucleated RBCs (0-0) /100 WBC Pathologist Review Potassium 3.3 L (3.5-5.1) mmol/L Chloride 111 H (98-107) mmol/L Creatinine 0.37 L (0.52-1.04) mg/dL Plasma Lactic Acid Eusebio (0.7-2.0) mmol/L Calcium 7.7 L (8.4-10.2) mg/dL Microbiology - Last 24 Hours (Table) 09/18/18 09:45 Urine Culture - Preliminary Urine,Voided Chest x-ray: report reviewed CT scan - pelvis: report reviewed US - abdomen: report reviewed Assessment and Plan (1) Breast mass Narrative/Plan: The patient has a significant right breast mass with characteristics as described. This is highly suspicious for malignancy. This has likely been somewhat neglected. The patient did not make any family member, or her PCP aware of this. I had a detailed discussion with her and her family regarding the implications. A primary breast cancer is strongly suspected. At this time the patient does not have definite evidence of metastatic disease. The bone lesion in the T-spine is indeterminate. No definite metastatic disease was seen in the abdomen and pelvis. Case was discussed with the surgical service who had been consulted. They will proceed with a core biopsy. Additional metastatic workup will be ordered, with labs, as well as bone scan and CT scan of the chest. Current Visit: Yes Status: Acute Code(s): N63.0 - UNSPECIFIED LUMP IN UNSPECIFIED BREAST SNOMED Code(s): 51223098 (2) Blood dyscrasia Narrative/Plan: The patient has a significant left shift, including a small percentage of blasts, as well as anemia. At this time, given the presence of the breast mass a significant concern would be marrow infiltration with malignancy. Other possibilities including dysplastic changes due to malnutrition, as well as a synchronous primary hematologic disorder or not ruled out. The patient will have labs ordered for cytopenia workup. If her counts continue to be abnormal, a bone marrow will be planned Current Visit: Yes Status: Acute Code(s): D75.9 - DISEASE OF BLOOD AND BLOOD-FORMING ORGANS, UNSPECIFIED SNOMED Code(s): 627784601 (3) Failure to thrive Narrative/Plan: At this time, malignancy appears to be main concern. Her symptoms of significant loss of appetite and loss of weight, definitely plays a possibility of metastatic disease. The patient is undergoing hydration, and net ui developer support. Current Visit: Yes Status: Acute Code(s): JKS4301 - SNOMED Code(s): 34297202
[2018-09-19 14:47] LABS: Reticulocyte % 2.2 % (0.5-2.0)
--- NOTE | 2018-09-19 15:02 | P.PN ---
Subjective Progress Note Date: 09/19/18 CHIEF COMPLAINT: Large right breast mass HISTORY OF PRESENT ILLNESS: Patient examined at the bedside. She is feeling well today. Denies pain to right breast. Daughter at bedside. PHYSICAL EXAM: VITAL SIGNS: Reviewed. GENERAL: Well-developed in no acute distress. HEENT: No sclera icterus. Extraocular movements grossly intact. Moist buccal mucosa. Head is atraumatic, normocephalic. ABDOMEN: Soft. Nondistended. Nontender. NEUROLOGIC: Alert and oriented. Cranial nerves II through XII grossly intact. SKIN: Right breast very firm with ulcerated region to lateral aspect. Serous drainage. Covered with gauze. IMAGING: CT abdomen and pelvis: Findings concerning for breast carcinoma with skin thickening and ill-defined hypoattenuated 2.3 cm mass. ASSESSMENT: 1. Right breast mass, CT concerning for carcinoma PLAN: Patient underwent core biopsy of right breast at the bedside. Tolerated well. Await pathology report. Nurse practitioner note has been reviewed by physician. Signing provider agrees with the documented findings, assessment, and plan of care. Objective - Vital Signs Vital signs: Vital Signs Temp 97.1 F L 09/19/18 08:00 Pulse 102 H 09/19/18 12:00 Resp 16 09/19/18 12:00 BP 123/67 09/19/18 12:00 Pulse Ox 97 09/19/18 12:00 Intake & Output 09/18/18 09/19/18 09/19/18 18:59 06:59 18:59 Intake Total 460 830 120 Output Total 400 Balance 460 830 -280 Weight 45.359 kg 45.2 kg Intake: Intake, IV Titration 250 600 Amount Sodium Chloride 0.9% 1, 150 600 000 ml @ 120 mls/hr IV . Q8H20M [facility] Rx#:[id number] cefTRIAXone 1 gm In 100 Sodium Chloride 0.9% 50 ml @ 100 mls/hr IVPB Q24HR [facility] Rx#:[id number] Oral 210 230 120 Output: Urine 400 Other: Voiding Method Toilet Toilet # Voids 2 - Labs CBC & Chem 7: 09/19/18 06:32 09/19/18 06:32 Labs: Abnormal Lab Results - Last 24 Hours (Table) 09/18/18 09/19/18 09/19/18 Range/Units 09:11 06:32 06:32 RBC 2.83 L (3.80-5.40) m/uL Hgb 8.3 L D (11.4-16.0) gm/dL Hct 26.4 L (34.0-46.0) % RDW 17.3 H (11.5-15.5) % Myelocytes # (Manual) 0.42 H (0) k/uL Promyelocytes # (Man) 0.08 H (0) k/uL Nucleated RBCs 3 H (0-0) /100 WBC Pathologist Review See comment A Retic Count (0.5-2.0) % Potassium 3.3 L (3.5-5.1) mmol/L Chloride 111 H (98-107) mmol/L Creatinine 0.37 L (0.52-1.04) mg/dL Calcium 7.7 L (8.4-10.2) mg/dL 09/19/18 Range/Units 14:35 RBC (3.80-5.40) m/uL Hgb (11.4-16.0) gm/dL Hct (34.0-46.0) % RDW (11.5-15.5) % Myelocytes # (Manual) (0) k/uL Promyelocytes # (Man) (0) k/uL Nucleated RBCs (0-0) /100 WBC Pathologist Review Retic Count 2.2 H (0.5-2.0) % Potassium (3.5-5.1) mmol/L Chloride (98-107) mmol/L Creatinine (0.52-1.04) mg/dL Calcium (8.4-10.2) mg/dL Microbiology - Last 24 Hours (Table) 09/18/18 09:45 Urine Culture - Final Urine,Voided
--- NOTE | 2018-09-19 18:35 | NM ---
EXAMINATION TYPE: NM bone scan whole body DATE OF EXAM: 09/19/2018 COMPARISON: NONE HISTORY: Breast mass Delayed whole-body scanning was performed following the injection of 23.0 mCi Tc 99m MDP. Images acq uired 3 hours post injection. FINDINGS: There are numerous foci of abnormal increased uptake in the thoracic and lumbar spine. These are pred ominantly in the thoracic spine and asymmetric. There are numerous foci similarly in the ribs bilater ally. There is abnormal increased uptake in the midline sacrum and left lateral aspect of the sacrum. There is 2 small foci of increased uptake over the right sacroiliac joint. There is abnormal increas ed uptake in the intertrochanteric right femur. There is also a similar smaller focus in the intertro chanteric left femur. There is increased uptake in the proximal shaft of the right femur. There is ab normal increased uptake in the glenoid portion of the left scapula. There are probably abnormal incr eased uptake small foci in the skull. Exam of the skull is limited to frontal view only. There is sli ght increased uptake mid shaft right humerus. IMPRESSION: Numerous abnormal foci of increased uptake as above throughout the axial skeleton consistent with met astatic disease.
--- NOTE | 2018-09-19 18:53 | CT ---
EXAMINATION TYPE: CT chest w con DATE OF EXAM: 09/19/2018 COMPARISON: None HISTORY: breast mass, UTI, sepsis CT DLP: 323 mGycm Automated exposure control for dose reduction was used. CONTRAST: CT scan of the chest is performed with IV Contrast, patient injected with 100 mL of Isovue 300. FINDINGS: There are bilateral pleural effusions. There is basilar pulmonary atelectasis. There is fatty infiltr ation of the liver. Heart size is normal. There is no pericardial effusion. There are no hilar masses . There is no mediastinal adenopathy. There is asymmetric 3 cm area of increased density in the lateral aspect of the right breast. There i s also skin retraction. Are multiple compression fractures in the thoracic spine with some variable osteosclerosis. Compressi on deformities are obtained of 40%. There is mild thoracic kyphosis. IMPRESSION: Bilateral pleural effusions and basilar atelectasis. Large right breast mass consistent with tumor. Compression fractures in the thoracic spine. Metastatic disease is possible. There is patchy osteoscl erosis.
[2018-09-19 18:54] LABS: Iron Saturation 30.43 (12.00-45.00); Protein, Total 4.6 g/dL (6.2-8.2)
--- NOTE | 2018-09-19 18:58 | P.OP ---
Date of Procedure: 09/19/18 Preoperative Diagnosis: Right breast mass Postoperative Diagnosis: Right breast mass Procedure(s) Performed: Core biopsy right breast mass Anesthesia: local Surgeon: Sonido Gonsales Estimated Blood Loss (ml): 3 Pathology: other (Right breast core biopsy) Condition: stable Disposition: floor Description of Procedure: The patient's right breast was prepped and draped usual sterile fashion. The skin was anesthetized 1% local Xylocaine. A jacy in the skin was made 11 blade. Then using the 14-gauge core biopsy needle several core biopsies of the breast mass her performed. Sterile dressings was applied. Patient tolerated procedure well.
[2018-09-19] MEDS: ESCITALOPRAM 10 MG TAB PO SCH (19:48)
[2018-09-19] MEDS: LORATADINE 10 MG TAB PO SCH (19:48)
[2018-09-20 06:57] LABS: Anisocytosis Slight; HCT 25.7 % (34.0-46.0); HGB 7.9 gm/dL (11.4-16.0); Hypochromasia Moderate; MCH 28.7 pg (25.0-35.0); MCHC 30.7 g/dL (31.0-37.0); MCV 93.5 fL (80.0-100.0); Platelet Count 339 k/uL (150-450); RBC 2.75 m/uL (3.80-5.40); RDW 17.9 % (11.5-15.5); WBC 9.5 k/uL (3.8-10.6)
[2018-09-20 07:15] LABS: Anion Gap 2 mmol/L; Blood Urea Nitrogen 10 mg/dL (7-17); Carbon Dioxide 27 mmol/L (22-30); Chloride 112 mmol/L (98-107); Glucose 77 mg/dL (74-99); Potassium 4.8 mmol/L (3.5-5.1); Sodium 141 mmol/L (137-145)
[2018-09-20] MEDS: TIMOLOL 0.5% OPHTH DROPS 5 ML BTL LEFT EYE SCH (08:04)
[2018-09-20] MEDS: CIPROFLOXACIN-DEXAMETH 0.3-0.1% DROPS 7.5 ML BTL BOTH EARS SCH (08:05)
[2018-09-20 10:31] VITALS: BP 113/73; PULSE 101; RESP 18; TEMP 97.7
--- NOTE | 2018-09-20 11:11 | P.PN ---
Subjective Progress Note Date: 09/20/18 Principal diagnosis: fatigue Patient is a 72-year-old female with a past medical history of right eye retinal detachment who presented to the ER with complaints of fatigue and dehydration. In the ER she underwent an extensive evaluation. On arrival she was found to be tachycardic with a pulse of 121. Laboratory analysis showed a white blood cell count of 11.4, hemoglobin 10.2, platelets of 404 along with blast cells and myelocytes. Lactic acid was found to be slightly elevated at 2.9. AST and ALP slightly elevated at 334. Albumin low at 2.7. Urinalysis was consistent with possible urinary tract infection at 24 white blood cells. She underwent a CT abdomen and pelvis which showed findings with concern for breast carcinoma with skin thickening and ill-defined 2.3 cm mass, arterial enhancing myometrial lesion in the uterus, and compression deformity at T12. She was started on IV fluids and Rocephin with concerns for UTI developing sepsis. She was admitted for further monitoring.On physiocal exam she has a large fungating, ulcerated breast mass on the right breast. CBC showed increased blast cell. Oncology was contacted and agrees that likely breast cancer. She had a beside biopsy on 09/19 of the mass, she underwent bone scan which showed diffuse osseous metastasis. Chest CT did not show any intrathorasic lesions. Patient seen and examined at bedside. Feeling much better, strength getting better, appetite is slightly increased, has been eating magic cups. No shortness of breath. Denies any bone pain. Daughters present at bedside and up dated on bone scan results. Objective - Vital Signs Vital signs: Vital Signs Temp 97.7 F 09/20/18 08:00 Pulse 101 H 09/20/18 08:00 Resp 18 09/20/18 08:00 BP 113/73 09/20/18 08:00 Pulse Ox 95 09/20/18 08:00 Intake & Output 09/19/18 09/20/18 09/20/18 18:59 06:59 18:59 Intake Total 120 1350 Output Total 400 Balance -280 1350 Weight 49.9 kg Intake: Intake, IV Titration 1200 Amount Sodium Chloride 0.9% 1, 1200 000 ml @ 120 mls/hr IV . Q8H20M [facility] Rx#:[id number] Oral 120 150 Output: Urine 400 Other: Voiding Method Toilet Toilet # Voids 2 - Exam General: non toxic, no distress, appears older than stated age, cachetic Derm: warm, dry Head: atraumatic, normocephalic, symmetric Eyes: EOMI, no lid lag, anicteric sclera Mouth: no lip lesion, mucus membranes moist Cardiovascular: S1S2 reg, no murmur, positive posterior tibial pulse bilateral, Lungs: CTA bilateral, no rhonchi, no rales , no accessory muscle use Abdominal: soft, nontender to palpation, no guarding, no appreciable organomegaly Ext: no gross muscle atrophy, no edema, no contractures Neuro: CN II-XI grossly intact, no focal neuro deficits Psych: Alert, oriented, appropriate affect - Labs CBC & Chem 7: 09/20/18 06:34 09/20/18 06:34 Labs: Abnormal Lab Results - Last 24 Hours (Table) 09/19/18 09/19/18 09/19/18 Range/Units 14:35 14:35 14:35 RBC (3.80-5.40) m/uL Hgb (11.4-16.0) gm/dL Hct (34.0-46.0) % MCHC (31.0-37.0) g/dL RDW (11.5-15.5) % Retic Count 2.2 H (0.5-2.0) % Chloride (98-107) mmol/L Creatinine (0.52-1.04) mg/dL Calcium (8.4-10.2) mg/dL Iron 42 L (50-170) ug/dL TIBC 138 L (228-460) ug/dL Ferritin 5330.0 H (10.0-291.0) ng/mL Total Protein (PEP) 4.6 L (6.2-8.2) g/dL CA 15-3 Antigen 434.3 H (0.0-32.3) U/mL CA 27-29 647.0 H (0.0-38.5) U/mL 09/20/18 09/20/18 Range/Units 06:34 06:34 RBC 2.75 L (3.80-5.40) m/uL Hgb 7.9 L (11.4-16.0) gm/dL Hct 25.7 L (34.0-46.0) % MCHC 30.7 L (31.0-37.0) g/dL RDW 17.9 H (11.5-15.5) % Retic Count (0.5-2.0) % Chloride 112 H (98-107) mmol/L Creatinine 0.39 L (0.52-1.04) mg/dL Calcium 8.0 L (8.4-10.2) mg/dL Iron (50-170) ug/dL TIBC (228-460) ug/dL Ferritin (10.0-291.0) ng/mL Total Protein (PEP) (6.2-8.2) g/dL CA 15-3 Antigen (0.0-32.3) U/mL CA 27-29 (0.0-38.5) U/mL Microbiology - Last 24 Hours (Table) 09/18/18 12:55 Blood Culture - Preliminary Blood No Growth after 24 hours 09/18/18 09:45 Urine Culture - Final Urine,Voided Assessment and Plan Assessment: Large breast mass right- probable breast cancer, Miranda metastasis, uterine lesion -s/p breast biopsy on 09/19, path pending - concern from oncology is for possible secondary bone marrow process and plan is for bone marrow biopsy in AM -Pain control- written Rx for norco on discharge. -Keep wound covered with ABD pad UTI, - culture negative due to outpatient abx -Stop rocephin and resume home cefdinir (was on for ear infection) Severe protein calorie malnutrition with albumin 2.7 -Dietitian recs -Encourage by mouth intake -Supplements Anemia with myelocytes present - bone marrow biopsy in AM -Discussed with pathology and concern is for space-occupying lesion such as infiltration of the bone marrow with metastasis or myelodysplastic syndrome -Repeat CBC in a.m. Elevated AST and alkaline phosphatase -Likely secondary to suspected metastatic disease -Repeat in AM -No abnormality seen on CT in liver/gallbladder Clinical dehydration as evidenced by dry mucous membranes, improved -stop IV fluid -Encourage oral intake Elevated lactic acid, improving DVT prophylaxis: Lovenox Discussed with: Patient, family, nursing Anticipated discharge date: in AM Anticipated discharge place: home with home health A total of 25 minutes was spent on the care of this complex patient more than 50% of the time was spent in counseling and care coordination.
--- NOTE | 2018-09-20 12:41 | P.DS ---
Providers Date of admission: 09/18/18 12:07 Expected date of discharge: 09/20/18 Attending physician: Irma Girard DO Consults: 09/18/18 11:56 Consult Physician Urgent Consulting Provider: Roney Bridges Consult Reason/Comments: Oncological evaluation, please evaluate outpatient blood work Do you want consulting provider notified?: Yes 09/18/18 14:54 Consult Physician Routine Consulting Provider: Sonido Gonsales Consult Reason/Comments: large right breast mass Do you want consulting provider notified?: Yes Primary care physician: Jude [place] Hospital Course: Discharge Diagnosis: Right breast mass, probable breast cancer Miranda metastasis Anemia with blast cells UTI Severe protein calorie malnutrition elevated AST and alk phos due to bone lesions Clinical dehydration Elevated lactic acid Secondary to metastatic process. Hospital Course: Patient is a 72-year-old female with a past medical history of right eye retinal detachment who presented to the ER with complaints of fatigue and dehydration. In the ER she underwent an extensive evaluation. On arrival she was found to be tachycardic with a pulse of 121. Laboratory analysis showed a white blood cell count of 11.4, hemoglobin 10.2, platelets of 404 along with blast cells and myelocytes. Lactic acid was found to be slightly elevated at 2.9. AST and ALP slightly elevated at 334. Albumin low at 2.7. Urinalysis was consistent with possible urinary tract infection at 24 white blood cells. She underwent a CT abdomen and pelvis which showed findings with concern for breast carcinoma with skin thickening and ill-defined 2.3 cm mass, arterial enhancing myometrial lesion in the uterus, and compression deformity at T12. She was started on IV fluids and Rocephin with concerns for UTI developing sepsis. She was admitted for further monitoring. On physical exam she has a large fungating, ulcerated mass on the right breast. CBC showed increased blast cell. Oncology was contacted and agrees that likely breast cancer. She had a bedside biopsy on 09/19 of the mass, she underwent bone scan which showed diffuse osseous metasta sis. Chest CT did not show any intrathorasic lesions. She will need a bone marrow biopsy which is scheduled for 09/22 at noon as an outpatient. She will follow closely with oncology. Working diagnosis is breast with mets to the bone. Oncology is concerned that there may be a secondary bone marrow problem and thus the bone marrow biopsy is scheduled. She was determined stable for discharge home. She will see Aby Pool NP on 09/25, Aby updated via phone. Dr. Knox's office will call her with an appointment. She will keep ulcer covered and dry. For physical exam see progress note same date. A total of 35 minutes of time were spent preparing this complex discharge summary . Pertinent Studies: Bone scan- Diffuse miranda mets CT chest- No intrathorasic disease CT abd and pelvis- Uterine lesion, right breast 2.3 cm lesion, and T12 compression deformity. Procedures: Bedside core breast biopsy 09/19. Patient Condition at Discharge: Fair Plan - Discharge Summary Discharge Rx Participant: No New Discharge Prescriptions: New HYDROcodone/APAP 5-325MG [[place] 5-325] 1 tab PO Q4HR PRN #18 tab PRN Reason: Pain Continue Escitalopram Oxalate [Lexapro] 10 mg PO HS Ciprofloxacin-Dexameth [Ciprodex Otic Susp] 4 drops BOTH EARS BID Cetirizine HCl [Zyrtec] 10 mg PO HS Cefdinir [Omnicef Oral Susp] 6 ml PO BID Timolol 0.5% Ophth Soln [Timoptic 0.5% Ophth Soln] 1 drop LEFT EYE DAILY Discharge Medication List Cefdinir [Omnicef Oral Susp] 6 ml PO BID 09/18/18 [History] Cetirizine HCl [Zyrtec] 10 mg PO HS 09/18/18 [History] Ciprofloxacin-Dexameth [Ciprodex Otic Susp] 4 drops BOTH EARS BID 09/18/18 [History] Escitalopram Oxalate [Lexapro] 10 mg PO HS 09/18/18 [History] Timolol 0.5% Ophth Soln [Timoptic 0.5% Ophth Soln] 1 drop LEFT EYE DAILY 09/18/18 [History] HYDROcodone/APAP 5-325MG [[place] 5-325] 1 tab PO Q4HR PRN #18 tab 09/20/18 [Rx] Follow up Appointment(s)/Referral(s): Renny Knox MD [STAFF PHYSICIAN] - 1 Week (Spoke to diplomatic interpreter/translator. Office will call with appointment time) [facility], [NON-STAFF] - Jude Pastrana MD [Primary Care Provider] - 09/25/18 9:45 am (Tuesday) Activity/Diet/Wound Care/Special Instructions: Walker - to be delivered to room prior to discharge - [facility] - [phone] Regular diet, activity as tolerated 09/11 nothing to eat or drink after midnight. Pre-op will call you with further instructions. Time for biopsy is 09/22 at 12:00 Can have magic cups delivered to home from [employer] or through [employer] Discharge Disposition: HOME WITH HOME HEALTH SERVICES
--- NOTE | 2018-09-20 12:55 | P.PN ---
Subjective Progress Note Date: 09/20/18 Principal diagnosis: fungating breast mass, abnormal bone scan with peripheral blasts In f/u today the pt states feeling well, she is eating and drinking, ambulating, no concerns for bowel or bladder, her daughter is at bedside. Objective - Vital Signs Vital signs: Vital Signs Temp 97.7 F 09/20/18 08:00 Pulse 101 H 09/20/18 08:00 Resp 18 09/20/18 08:00 BP 113/73 09/20/18 08:00 Pulse Ox 95 09/20/18 08:00 Intake & Output 09/19/18 09/20/18 09/20/18 18:59 06:59 18:59 Intake Total 120 1350 Output Total 400 Balance -280 1350 Weight 49.9 kg Intake: Intake, IV Titration 1200 Amount Sodium Chloride 0.9% 1, 1200 000 ml @ 120 mls/hr IV . Q8H20M [facility] Rx#:[id number] Oral 120 150 Output: Urine 400 Other: Voiding Method Toilet Toilet # Voids 2 - Constitutional General appearance: Present: cooperative, no acute distress, thin - EENT Eyes: Present: anicteric sclerae, EOMI ENT: Present: hearing grossly normal - Respiratory Details: resp even and unlabored - Peripheral edema leg Peripheral Edema: bilateral: None - Integumentary Integumentary: Present: normal - Neurologic Neurologic: Present: CNII-XII intact - Musculoskeletal Musculoskeletal: Present: strength equal bilaterally - Psychiatric Psychiatric: Present: A&O x's 3, appropriate affect, intact judgment & insight - Labs CBC & Chem 7: 09/20/18 06:34 09/20/18 06:34 Labs: Abnormal Lab Results - Last 24 Hours (Table) 09/19/18 09/19/18 09/19/18 Range/Units 14:35 14:35 14:35 RBC (3.80-5.40) m/uL Hgb (11.4-16.0) gm/dL Hct (34.0-46.0) % MCHC (31.0-37.0) g/dL RDW (11.5-15.5) % Retic Count 2.2 H (0.5-2.0) % Chloride (98-107) mmol/L Creatinine (0.52-1.04) mg/dL Calcium (8.4-10.2) mg/dL Iron 42 L (50-170) ug/dL TIBC 138 L (228-460) ug/dL Ferritin 5330.0 H (10.0-291.0) ng/mL Total Protein (PEP) 4.6 L (6.2-8.2) g/dL CA 15-3 Antigen 434.3 H (0.0-32.3) U/mL CA 27-29 647.0 H (0.0-38.5) U/mL 09/20/18 09/20/18 Range/Units 06:34 06:34 RBC 2.75 L (3.80-5.40) m/uL Hgb 7.9 L (11.4-16.0) gm/dL Hct 25.7 L (34.0-46.0) % MCHC 30.7 L (31.0-37.0) g/dL RDW 17.9 H (11.5-15.5) % Retic Count (0.5-2.0) % Chloride 112 H (98-107) mmol/L Creatinine 0.39 L (0.52-1.04) mg/dL Calcium 8.0 L (8.4-10.2) mg/dL Iron (50-170) ug/dL TIBC (228-460) ug/dL Ferritin (10.0-291.0) ng/mL Total Protein (PEP) (6.2-8.2) g/dL CA 15-3 Antigen (0.0-32.3) U/mL CA 27-29 (0.0-38.5) U/mL Microbiology - Last 24 Hours (Table) 09/18/18 12:55 Blood Culture - Preliminary Blood No Growth after 24 hours 09/18/18 09:45 Urine Culture - Final Urine,Voided - Imaging and Cardiology CT scan - chest: report reviewed NM bone scan report reviewed Assessment and Plan Plan: Breast mass and peripheral blasts: Case was discussed with IM, Dr. Knox and Dr. Bhatia. Reviewed bone scan results with pt and daughter. Plan is: 1) Breast path pending. The CT CAP is showing no other evidence to suggest malignancy is tissue/organs. ER/ID/Her2 pending. Ca15.3 and Ca27.29 elevated 2) NM bone scan is showing what is being described as widespread bone metastasis. That info in conjunction with abnormal lab values (peripheral blasts, myelocytes) is an unusual finding so, bone marrow is recommended. In this particular case, due to the unusual findings, it is reasonable to do BM bx and asp. It is necessary to rule out 2 different malignant processes occurring simultaneously. Pt is in agreement with this plan. The procedure risks and benefits were discussed. The procedure is scheduled outpatient for Tuesday at noon with Dr. Bridges. Contacted floor RN with info. Once all of the diagnostic information is available formal diagnosis, prognosis and treatment plan can be discussed and implemented. It is ok for pt to be discharged from Hem/Onc standpoint and come back Tuesday for procedure. Follow up will be scheduled in office.
[2018-09-20] MEDS ORDERED: CEFDINIR 300 MG CAP PO SCH (21:00)
[2018-09-21 09:26] LABS: Methylmalonic Acid 0.32 umol/L (<0.40)
[2018-09-21 09:51] LABS: Albumin 1.48 g/dL (3.80-4.90)
== END 2018-09-20 13:29 | disposition home health service (06) ==
LOC: EC 08:05 → 3SCARD 12:07 → 3NMEDONC 09-20 12:02 → 3SCARD 09-20 12:05
PROVIDERS: ADMIT Internal Medicine; ATTEND Internal Medicine
DX: N63.10 Unspecified lump in the right breast, unspecified quadrant (principal); C79.51 Secondary malignant neoplasm of bone; D64.9 Anemia, unspecified; N39.0 Urinary tract infection, site not specified; E43 Unspecified severe protein-calorie malnutrition; Z68.1 Body mass index [BMI] 19.9 or less, adult; E86.0 Dehydration; N85.9 Noninflammatory disorder of uterus, unspecified; G95.20 Unspecified cord compression; F32.9 Major depressive disorder, single episode, unspecified; F41.9 Anxiety disorder, unspecified; H66.93 Otitis media, unspecified, bilateral; R74.0 Nonspecific elevation of levels of transaminase and lactic acid dehydrogenase [LDH]; R94.8 Abnormal results of function studies of other organs and systems; H26.9 Unspecified cataract; R62.7 Adult failure to thrive; M89.9 Disorder of bone, unspecified; Z79.899 Other long term (current) drug therapy; Z88.8 Allergy status to other drugs, medicaments and biological substances; Z80.42 Family history of malignant neoplasm of prostate; Z82.49 Family history of ischemic heart disease and other diseases of the circulatory system; Z82.3 Family history of stroke; Z66 Do not resuscitate; Z23 Encounter for immunization
CPT/HCPCS: 19100; 96361 ×2; 96365 ×2; 99291; 36415; 93005; 97162; 97530; 97166; 83921; 84439; 88305; 82747; 84481; 80053; 80048 ×2; 86300 ×2; 82607; 82728; 82150; 82550; 83540; 83550; 83605; 83690; 83735; 84100; 84443; 84484; 85025 ×2; 85027; 85610; 85045; 85730; 81001; 88342; 87040; 88341; 84165; 87086; 86334; 83883; 71046; 71260; 74177; 78306; 90732; G0378 ×3; A9503; G0009; J0696 ×3; Q9967 ×2

== ENCOUNTER 2018-09-22 10:37 | Day surgery (SDC) | payer MEDICARE ==
[2018-09-21 08:29] VITALS: BMI 17.7
[~2018-09-22 10:37] MED LIST: LACTATED RINGERS 1,000 ML IV SCH; LIDOCAINE 1% 20 ML VIAL (10MG/ML) FOR IV START INTRADERMA PRN
[2018-09-22 11:40] VITALS: TEMP 99.9
[2018-09-22] MEDS ORDERED: LIDOCAINE 2% INJ 20 MG/ML SQ ONE ×2 (11:50→12:08)
[2018-09-22] MEDS ORDERED: PROPOFOL 10 MG/ML 20 ML VIAL IV ONE (12:00)
[2018-09-22] MEDS ORDERED: LIDOCAINE 1% INJ 10MG/ML (20 ML MDV) ONE (12:00)
[2018-09-22] MEDS ORDERED: fentaNYL (PF) 50 MCG/ML 2 ML AMP ONE (12:00)
[2018-09-22] MEDS ORDERED: MIDAZOLAM 2 MG/2 ML VIAL ONE (12:00)
[2018-09-22 12:34] VITALS: RESP 16
[2018-09-22 12:55] LABS: Anisocytosis Slight; HCT 35.5 % (34.0-46.0); Hypochromasia Moderate; MCH 28.8 pg (25.0-35.0); MCHC 31.2 g/dL (31.0-37.0); MCV 92.2 fL (80.0-100.0); Platelet Count 475 k/uL (150-450); RBC 3.85 m/uL (3.80-5.40); RDW 18.6 % (11.5-15.5)
[2018-09-22 12:56] LABS: HGB 11.1 gm/dL (11.4-16.0)
[2018-09-22 13:34] VITALS: BP 108/68; PULSE 98
[2018-09-22 14:46] LABS: Band Neutrophils % 4 %; Eosinophils # (M) 0.12 k/uL (0-0.7); Lymphocytes # (M) 1.64 k/uL (1.0-4.8); Metamyelocytes # (M) 0.23 k/uL (0); Metamyelocytes % 2 %; Monocytes # (M) 0.12 k/uL (0-1.0); Myelocytes # (M) 0.12 k/uL (0); Myelocytes % 1 %; Neutrophils % (M) 77 %; Nucleated Red Blood Cells 4 /100 WBC (0-0); Promyelocytes # (M) 0.12 k/uL (0); Promyelocytes % 1 %; Total Cells Counted 200; WBC 11.7 k/uL (3.8-10.6)
[2018-09-22 14:48] LABS: Poikilocytosis (M) Present; Spherocytes Present
--- NOTE | 2018-09-26 08:01 | PCN ---
PROCEDURE NOTE DATE OF PROCEDURE: 09/22/2018 PROCEDURE: Bone marrow aspirate and biopsy. PREOPERATIVE DIAGNOSIS: Pancytopenia. POSTOPERATIVE DIAGNOSIS: Pancytopenia. ANESTHESIA: Local with IV systemic sedation. DETAILS: Utilizing sterile technique, the skin overlying the right iliac crest was prepared with Betadine and alcohol. After adequate sterile draping, local anesthesia and systemic sedation, size 11.4 inch Jamshidi needle was utilized to access the periosteum with ease. At a total of 8 mL of aspirate as well as 2 cm bone core biopsies were obtained. The patient tolerated the procedure well. There was no immediate procedure-related complication. TOTAL BLOOD LOSS: Less than 1 mL. Results pending. MMODL / IJN: [id number] /
== END 2018-09-22 13:20 | disposition home or self-care (01) ==
LOC: OR 10:37
PROVIDERS: ATTEND Internal Medicine Hematology & Oncology
DX: C79.52 Secondary malignant neoplasm of bone marrow (principal); F41.9 Anxiety disorder, unspecified; F32.9 Major depressive disorder, single episode, unspecified; R63.4 Abnormal weight loss; Z68.1 Body mass index [BMI] 19.9 or less, adult; Z79.899 Other long term (current) drug therapy; Z88.6 Allergy status to analgesic agent
CPT/HCPCS: 85025; 38222; J2001 ×2; J2250; J3010; J2704

== ENCOUNTER → 2019-12-31 | Outpatient (CLI) | payer MEDICARE ==
--- NOTE | 2019-12-31 10:54 | CT ---
EXAMINATION TYPE: CT ChestAbdPelvis w con DATE OF EXAM: 12/31/2019 COMPARISON: Prior CT 09/19/2018, 09/18/2018 HISTORY: Follow up breast cancer. CT DLP: 623.1 mGycm Automated exposure control for dose reduction was used. CONTRAST: CT scan of the chest, abdomen and pelvis is performed with Oral Contrast and with IV Contrast, patien t injected with 100 mL of Isovue 300. FINDINGS: LUNGS: The lungs are stable, there is no concerning parenchymal mass or nodule identified, subpleural nodule in the right upper lobe is unchanged. There is no pleural effusion or pneumothorax seen. T he tracheobronchial tree is patent. MEDIASTINUM: There are no greater than 1 cm hilar or mediastinal lymph nodes. No pericardial effusi on is seen. There is a partial intrathoracic stomach, hiatal hernia. AORTA: No significant abnormality is seen. OTHER: No additional significant abnormality is seen. LIVER/GB: Stable appearance, irregular appearance of the gallbladder wall is again noted to be somewh at thickened, there is a dependent calcification, anterior calcification also present, wall appears s omewhat dense. Low-attenuation of the liver may be due to hepatic steatosis PANCREAS: No significant abnormality is seen. SPLEEN: No significant abnormality is seen. ADRENALS: No significant abnormality is seen. KIDNEYS: Parapelvic cysts are present within the bilateral kidneys.. REPRODUCTIVE ORGANS: No significant interval change seen. Enhancing probable fibroid not seen today w ith certainty. BOWEL: No significant abnormality is seen. FREE AIR: No Free Air visible. ASCITES: None seen. RETROPERITONEAL ADENOPATHY: No retroperitoneal adenopathy is seen. LYMPH NODES: No greater than 1 cm abdominal or pelvic lymph nodes are appreciated. URINARY BLADDER: No significant abnormality is seen. PELVIC ADENOPATHY: None visualized. OSSEOUS STRUCTURES: There is been interval development of sclerotic foci throughout the skeleton to include the shoulders, spine, ribs, sternum, clavicles, pelvis. IMPRESSION: Diffuse bone metastasis. 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
--- NOTE | 2019-12-31 13:46 | NM ---
EXAMINATION TYPE: NM bone scan whole body DATE OF EXAM: 12/31/2019 COMPARISON: 09/19/2018 HISTORY: Follow-up bone metastases in a patient with breast CA. Delayed whole-body scanning was performed following the injection of 23.9 mCi Tc 99m MDP. Images acq uired 4.5 hours post injection. FINDINGS: Improved lesions: Intense areas of increased uptake throughout the thoracic spine and upper lumbar sp ine persists although appear to have improved. Improved lesions are also noted involving the sacrum a nd pelvis. Right femoral diaphyseal lesions and left femoral diaphyseal lesions which persist althoug h appear improved. Progressive lesions: There is progressive disease noted about the left humeral head as well as the ri ght humeral head. Progressive disease is suggested about the bilateral proximal femora. New lesions: None Stable lesions: Calvarial, bilateral rib lesions are stable. IMPRESSION: 1. Bony metastatic disease redemonstrated with areas of improvement and progression as noted above.
== END | disposition home or self-care (01) ==
LOC: RADCTMAIN 07:59
PROVIDERS: ATTEND Internal Medicine Hematology & Oncology
DX: C79.51 Secondary malignant neoplasm of bone (principal); C50.811 Malignant neoplasm of overlapping sites of right female breast; Z88.6 Allergy status to analgesic agent
CPT/HCPCS: 82565; 84520; 71260; 74177; 36415; 78306; A9503; Q9967

== ENCOUNTER 2020-07-09 08:34 | Emergency (ER) | payer MEDICARE ==
[2020-07-09 08:44] VITALS: RESP 18
[2020-07-09] MEDS ORDERED: SODIUM CHLORIDE 0.9% 1,000 ML IV STA ×2 (09:12)
--- NOTE | 2020-07-09 09:19 | ED ---
Nausea/Vomiting/Diarrhea HPI - General Chief complaint: Nausea/Vomiting/Diarrhea Stated complaint: lab recheck Time Seen by Provider: 07/09/20 08:52 Source: patient, family, RN notes reviewed Mode of arrival: ambulatory Limitations: no limitations - History of Present Illness Initial comments: This is a 74-year-old female history of breast cancer who presents with complaints of nausea and decreased appetite she has a history of depression as well as the metastatic breast cancer. She is on oral chemo medication was started on Lexapro a week ago in [place] for appetite yesterday. She feels generally weak. The nausea is been going on for about a month she states. Per the patient's daughter actually believe the symptoms to be going on since Than ksgiving of this past year. She has had about a 10 pound weight loss since that time. She had a code test performed this morning the results are pending she's had no rhinorrhea no overt cough fevers chills or sweats. MD complaint: nausea, other - Related Data Home Medications Medication Instructions Recorded Confirmed Cetirizine HCl [Zyrtec] 10 mg PO W/SUPPER 09/18/18 07/09/20 Cholecalciferol [Vitamin D3 (25 1,000 unit PO DAILY 07/09/20 07/09/20 Mcg = 1000 Iu)] Escitalopram [Lexapro] 20 mg PO W/SUPPER 07/09/20 07/09/20 Letrozole [Femara] 2.5 mg PO W/SUPPER 07/09/20 07/09/20 Multivitamins, Thera [Multivitamin 1 tab PO DAILY 07/09/20 07/09/20 (formulary)] Palbociclib [Ibrance] 125 mg PO W/SUPPER 07/09/20 07/09/20 Zinc 50 mg PO DAILY 07/09/20 07/09/20 dronabinoL [Marinol] 5 mg PO W/SUPPER 07/09/20 07/09/20 Previous Rx's Medication Instructions Recorded Cephalexin [Keflex] 250 mg PO Q6HR #28 cap 07/09/20 Allergies Allergy/AdvReac Type Severity Reaction Status Date / Time ibuprofen Allergy Unknown Verified 07/09/20 09:41 Review of Systems ROS Statement: Those systems with pertinent positive or pertinent negative responses have been documented in the HPI. ROS Other: All systems not noted in ROS Statement are negative. Past Medical History Past Medical History: Cancer, Eye Disorder Additional Past Medical History / Comment(s): Current bilateral ear infections, ruptured rt eardrum, recent [facility] admit with UTI/ dehydration/malnurished/sepsis. has walker/weak gait, pt has metastatic breast cancer History of Any Multi-Drug Resistant Organisms: None Reported Additional Past Surgical History / Comment(s): L eye cataract removed-failed surgery and now has artificial retina. Past Anesthesia/Blood Transfusion Reactions: Family History of Problems w/ Anesthesia, Postoperative Nausea & Vomiting (PONV) Additional Past Anesthesia/Blood Transfusion Reaction / Comment(s): Pt has never received general/spinal anesthesia. daughter has PONV Past Psychological History: Anxiety, Depression Smoking Status: Never smoker Past Alcohol Use History: None Reported Past Drug Use History: None Reported - Past Family History Father Family Medical History: Cancer Additional Family Medical History / Comment(s): Father had prostate cancer. General Exam - General Exam Comments Initial Comments: This is a well-developed asthenic appearing female who is awake alert oriented 3 Limitations: no limitations General appearance: alert Head exam: Present: atraumatic, normocephalic, normal inspection Eye exam: Present: normal appearance, PERRL, EOMI. Absent: scleral icterus, conjunctival injection, periorbital swelling ENT exam: Present: mucous membranes dry Neck exam: Present: normal inspection. Absent: tenderness, meningismus, lymphadenopathy Respiratory exam: Present: normal lung sounds bilaterally. Absent: respiratory distress, wheezes, rales, rhonchi, stridor Cardiovascular Exam: Present: normal rhythm, tachycardia, normal heart sounds. Absent: systolic murmur, diastolic murmur, rubs, gallop, clicks GI/Abdominal exam: Present: soft, normal bowel sounds. Absent: distended, tenderness, guarding, rebound, rigid Extremities exam: Present: normal inspection, full ROM, normal capillary refill. Absent: tenderness, pedal edema, joint swelling, calf tenderness Back exam: Present: normal inspection Neurological exam: Present: alert, oriented X3, CN II-XII intact Psychiatric exam: Present: normal affect, normal mood Skin exam: Present: warm, dry, intact, normal color. Absent: rash Course Vital Signs 07/09/20 08:38 Temperature 98 F Pulse Rate 105 H Respiratory 18 Rate Blood Pressure 114/67 O2 Sat by Pulse 97 Oximetry Medical Decision Making - Medical Decision Making The patient is so much improved after IV hydration will be discharged. I did discuss the findings with her and her daughter. There is evidence of UTI patient will be placed on antibiotics she was cautioned about bathing he takes a daily bath. I did recommend taking showers for the next several days instead. also increasing her oral fluids - Lab Data Result diagrams: 07/09/20 09:24 07/09/20 09:24 Lab Results 07/09/20 07/09/20 07/09/20 Range/Units 09:24 09:24 09:32 WBC 4.0 (3.8-10.6) k/uL RBC 4.04 (3.80-5.40) m/uL Hgb 13.6 (11.4-16.0) gm/dL Hct 41.8 (34.0-46.0) % MCV 103.3 H (80.0-100.0) fL MCH 33.6 (25.0-35.0) pg MCHC 32.5 (31.0-37.0) g/dL RDW 16.6 H (11.5-15.5) % Plt Count 395 (150-450) k/uL MPV 6.6 Neutrophils % 70 % Lymphocytes % 23 % Monocytes % 3 % Eosinophils % 1 % Basophils % 1 % Neutrophils # 2.8 (1.3-7.7) k/uL Lymphocytes # 0.9 L (1.0-4.8) k/uL Monocytes # 0.1 (0-1.0) k/uL Eosinophils # 0.1 (0-0.7) k/uL Basophils # 0.0 (0-0.2) k/uL Anisocytosis Slight Macrocytosis Moderate Sodium 141 (137-145) mmol/L Potassium 4.2 (3.5-5.1) mmol/L Chloride 102 (98-107) mmol/L Carbon Dioxide 30 (22-30) mmol/L Anion Gap 9 mmol/L BUN 26 H (7-17) mg/dL Creatinine 0.76 (0.52-1.04) mg/dL Est GFR (CKD-EPI)AfAm >90 (>60 ml/min/1.73 sqM) Est GFR (CKD-EPI)NonAf 79 (>60 ml/min/1.73 sqM) Glucose 139 H (74-99) mg/dL Calcium 9.6 (8.4-10.2) mg/dL Magnesium 2.7 H (1.6-2.3) mg/dL Total Bilirubin 0.9 (0.2-1.3) mg/dL AST 123 H (14-36) U/L ALT 33 (4-34) U/L Alkaline Phosphatase 127 H (38-126) U/L Creatine Kinase 52 (30-135) U/L Total Protein 7.5 (6.3-8.2) g/dL Albumin 4.2 (3.5-5.0) g/dL Urine Color Dark Yellow Urine Appearance Cloudy H (Clear) Urine pH 5.5 (5.0-8.0) Ur Specific [place] 1.028 (1.001-1.035) Urine Protein 1+ H (Negative) Urine Glucose (UA) Negative (Negative) Urine Ketones Negative (Negative) Urine Blood Negative (Negative) Urine Nitrite Negative (Negative) Urine Bilirubin Negative (Negative) Urine Urobilinogen 3.0 (<2.0) mg/dL Ur Leukocyte Esterase Large H (Negative) Urine RBC 6 H (0-5) /hpf Urine WBC >182 H (0-5) /hpf Ur Squamous Epith Cells 2 (0-4) /hpf Urine Bacteria Many H (None) /hpf Urine Mucus Many H (None) /hpf - Radiology Data Radiology results: report reviewed (Imaging reviewed no evidence of acute findings evidence of metastatic disease.), image reviewed Disposition Clinical Impression: Urinary tract infection, Dehydration Disposition: HOME SELF-CARE Condition: Good Instructions (If sedation given, give patient instructions): Dehydration (ED), Urinary Tract Infection in Women (ED) Prescriptions: Cephalexin [Keflex] 250 mg PO Q6HR #28 cap Is patient prescribed a controlled substance at d/c from ED?: No Referrals: Yovani Mathews MD [Primary Care Provider] - 1-2 days
[2020-07-09 09:41] LABS: Anisocytosis Slight; Basophils % (A) 1 %; Eosinophils # (A) 0.1 k/uL (0-0.7); Eosinophils % (A) 1 %; HCT 41.8 % (34.0-46.0); HGB 13.6 gm/dL (11.4-16.0); Lymphocytes # (A) 0.9 k/uL (1.0-4.8); Lymphocytes % (A) 23 %; MCH 33.6 pg (25.0-35.0); MCHC 32.5 g/dL (31.0-37.0); MCV 103.3 fL (80.0-100.0); Macrocytosis Moderate; Mean Platelet Volume 6.6; Monocytes # (A) 0.1 k/uL (0-1.0); Monocytes % (A) 3 %; Neutrophils # (A) 2.8 k/uL (1.3-7.7); Neutrophils % (A) 70 %; Platelet Count 395 k/uL (150-450); RBC 4.04 m/uL (3.80-5.40); RDW 16.6 % (11.5-15.5)
[2020-07-09 09:53] LABS: Appearance,Urine Cloudy (Clear); Bacteria,Urine Many /hpf; Bilirubin,Urine Negative (Negative); Blood,Urine Negative (Negative); Color,Urine Dark Yellow; Glucose,Urine (UA) Negative (Negative); Ketones,Urine Negative (Negative); Leukocyte Esterase,Urine Large (Negative); Mucus,Urine Many /hpf; Nitrite,Urine Negative (Negative); PH, Urine 5.5 (5.0-8.0); Protein,Urine 1+ (Negative); RBC,Urine 6 /hpf (0-5); Specific Gravity,Urine 1.028 (1.001-1.035); Squamous Epithelial Cell,Urine 2 /hpf (0-4); WBC,Urine >182 /hpf (0-5)
[2020-07-09 09:54] LABS: ALT 33 U/L (4-34); AST 123 U/L (14-36); African American GFR (CKD) >90 (>60 ml/min/1.73 sqM); Albumin 4.2 g/dL (3.5-5.0); Alkaline Phosphatase 127 U/L (38-126); Anion Gap 9 mmol/L; Blood Urea Nitrogen 26 mg/dL (7-17); Calcium 9.6 mg/dL (8.4-10.2); Carbon Dioxide 30 mmol/L (22-30); Chloride 102 mmol/L (98-107); Creatine Kinase 52 U/L (30-135); Glucose 139 mg/dL (74-99); Magnesium 2.7 mg/dL (1.6-2.3); Non-African American GFR(CKD) 79 (>60 ml/min/1.73 sqM); Potassium 4.2 mmol/L (3.5-5.1); Sodium 141 mmol/L (137-145); Total Bilirubin 0.9 mg/dL (0.2-1.3); Total Protein 7.5 g/dL (6.3-8.2)
--- NOTE | 2020-07-09 10:00 | XR ---
EXAMINATION TYPE: XR chest 2V DATE OF EXAM: 07/09/2020 COMPARISON: 09/18/2018, CT 12/31/2019 HISTORY: 74-year-old female nausea, weakness, history of breast cancer. TECHNIQUE: PA and lateral views FINDINGS: Heart normal size. Aorta and pulmonary vasculature within normal limits. Hyperinflation. Subtle patch y sclerosis seen throughout the osseous structures. Moderate-sized retrocardiac lucency. Mild height loss of T6, T7, and more moderate at T11 vertebral bodies unchanged from 12/31/2019. IMPRESSION: COPD. Moderate to large hiatal hernia. Diffuse osseous metastases. Mild vertebral compression injurie s at T6 and T7, more moderate height loss at T11 all relatively unchanged from 12/31/2019. No definite acute process.
[2020-07-09] MEDS ORDERED: CEPHALEXIN 250 MG CAP PO STA (11:37)
[2020-07-09 12:15] VITALS: BP 122/68; PULSE 88; TEMP 97.7
== END 2020-07-09 12:19 | disposition home or self-care (01) ==
LOC: EC 08:34
DX: N39.0 Urinary tract infection, site not specified (principal); E86.0 Dehydration; F41.9 Anxiety disorder, unspecified; F32.9 Major depressive disorder, single episode, unspecified; C79.51 Secondary malignant neoplasm of bone; C50.919 Malignant neoplasm of unspecified site of unspecified female breast; Z79.899 Other long term (current) drug therapy; Z88.6 Allergy status to analgesic agent
CPT/HCPCS: 36415; 71046; 80053; 81001; 82550; 83735; 85025; 87086; 96360; 96361; 99284

== ENCOUNTER 2020-07-12 13:06 | Observation (INO) | payer MEDICARE ==
[2020-07-12] MEDS ORDERED: SODIUM CHLORIDE 0.9% 500 ML 500 ML IV STA (13:16)
[2020-07-12] MEDS ORDERED: SODIUM CHLORIDE 0.9% 1,000 ML IV STA (13:16)
[2020-07-12 13:51] LABS: Basophils % (A) 1 %; Eosinophils # (A) 0.1 k/uL (0-0.7); Eosinophils % (A) 1 %; HGB 14.1 gm/dL (11.4-16.0); Lymphocytes # (A) 0.8 k/uL (1.0-4.8); Lymphocytes % (A) 24 %; MCH 34.6 pg (25.0-35.0); MCHC 34.5 g/dL (31.0-37.0); MCV 100.3 fL (80.0-100.0); Macrocytosis Slight; Mean Platelet Volume 6.7; Monocytes # (A) 0.1 k/uL (0-1.0); Monocytes % (A) 4 %; Neutrophils # (A) 2.2 k/uL (1.3-7.7); Neutrophils % (A) 67 %; Platelet Count 402 k/uL (150-450); RBC 4.09 m/uL (3.80-5.40); RDW 15.7 % (11.5-15.5); WBC 3.3 k/uL (3.8-10.6)
[2020-07-12 13:57] LABS: ALT 45 U/L (4-34); African American GFR (CKD) >90 (>60 ml/min/1.73 sqM); Albumin 4.3 g/dL (3.5-5.0); Anion Gap 8 mmol/L; Blood Urea Nitrogen 20 mg/dL (7-17); Calcium 9.3 mg/dL (8.4-10.2); Carbon Dioxide 27 mmol/L (22-30); Chloride 101 mmol/L (98-107); Creatine Kinase 67 U/L (30-135); Glucose 124 mg/dL (74-99); Non-African American GFR(CKD) >90 (>60 ml/min/1.73 sqM); Sodium 136 mmol/L (137-145); Total Bilirubin 0.9 mg/dL (0.2-1.3); Total Protein 7.7 g/dL (6.3-8.2)
[2020-07-12 13:59] LABS: Potassium 4.7 mmol/L (3.5-5.1)
[2020-07-12 14:00] LABS: AST 141 U/L (14-36); Alkaline Phosphatase 138 U/L (38-126); Magnesium 2.6 mg/dL (1.6-2.3)
--- NOTE | 2020-07-12 14:02 | ED ---
Weakness HPI - General Chief complaint: Weakness Stated complaint: Revisit Weakness,not eating/drinking Time Seen by Provider: 07/12/20 13:16 Source: patient, family, RN/MD, RN notes reviewed Mode of arrival: ambulatory Limitations: no limitations - History of Present Illness Initial comments: This is a 74-year-old female with a history of metastatic breast cancer currently and endocrine therapy. Has 1 or 2 days of demonstrated generalized weakness decreased oral intake failure to thrive. She denies any overt fevers chills or sweats. She has fatigue she gets very weak after very brief exertion. No overt chest pains or other symptoms MD Complaint: generalized weakness - Related Data Home Medications Medication Instructions Recorded Confirmed Cetirizine HCl [Zyrtec] 10 mg PO W/SUPPER 09/18/18 07/12/20 Cholecalciferol [Vitamin D3 (25 1,000 unit PO DAILY 07/09/20 07/12/20 Mcg = 1000 Iu)] Escitalopram [Lexapro] 20 mg PO W/SUPPER 07/09/20 07/12/20 Letrozole [Femara] 2.5 mg PO W/SUPPER 07/09/20 07/12/20 Multivitamins, Thera [Multivitamin 1 tab PO DAILY 07/09/20 07/12/20 (formulary)] Palbociclib [Ibrance] 125 mg PO W/SUPPER 07/09/20 07/12/20 Zinc 50 mg PO DAILY 07/09/20 07/12/20 dronabinoL [Marinol] 5 mg PO W/SUPPER 07/09/20 07/12/20 Previous Rx's Medication Instructions Recorded Cephalexin [Keflex] 250 mg PO Q6HR #28 cap 07/09/20 Allergies Allergy/AdvReac Type Severity Reaction Status Date / Time ibuprofen Allergy Unknown Verified 07/12/20 15:16 Review of Systems ROS Statement: Those systems with pertinent positive or pertinent negative responses have been documented in the HPI. ROS Other: All systems not noted in ROS Statement are negative. Past Medical History Past Medical History: Cancer, Eye Disorder Additional Past Medical History / Comment(s): Current bilateral ear infections, ruptured rt eardrum, recent [facility] with UTI/ dehydration/malnurished/sepsis. has walker/weak gait, pt has metastatic breast cancer History of Any Multi-Drug Resistant Organisms: None Reported Additional Past Surgical History / Comment(s): L eye cataract removed-failed surgery and now has artificial retina. Past Anesthesia/Blood Transfusion Reactions: Family History of Problems w/ Anesthesia, Postoperative Nausea & Vomiting (PONV) Additional Past Anesthesia/Blood Transfusion Reaction / Comment(s): Pt has never received general/spinal anesthesia. daughter has PONV Past Psychological History: Anxiety, Depression Smoking Status: Never smoker Past Alcohol Use History: None Reported Past Drug Use History: None Reported - Past Family History Father Family Medical History: Cancer Additional Family Medical History / Comment(s): Father had prostate cancer. General Exam - General Exam Comments Initial Comments: This a well-developed sec appearing female who is awake alert oriented 3 Limitations: no limitations General appearance: alert Head exam: Present: atraumatic, normocephalic, normal inspection Eye exam: Present: normal appearance, PERRL, EOMI. Absent: scleral icterus, conjunctival injection, periorbital swelling ENT exam: Present: mucous membranes dry Neck exam: Present: normal inspection. Absent: tenderness, meningismus, lymphadenopathy Respiratory exam: Present: normal lung sounds bilaterally. Absent: respiratory distress, wheezes, rales, rhonchi, stridor Cardiovascular Exam: Present: regular rate, normal rhythm, normal heart sounds. Absent: systolic murmur, diastolic murmur, rubs, gallop, clicks GI/Abdominal exam: Present: soft, normal bowel sounds. Absent: distended, tenderness, guarding, rebound, rigid Extremities exam: Present: normal inspection, full ROM, normal capillary refill. Absent: tenderness, pedal edema, joint swelling, calf tenderness Back exam: Present: normal inspection Neurological exam: Present: alert, oriented X3, CN II-XII intact Psychiatric exam: Present: normal affect, normal mood Skin exam: Present: warm, dry, intact, normal color. Absent: rash Course Vital Signs 07/12/20 07/12/20 07/12/20 13:21 14:27 15:00 Temperature 98.5 F Pulse Rate 92 65 67 Respiratory 20 18 18 Rate Blood Pressure 117/77 137/74 157/83 O2 Sat by Pulse 97 98 98 Oximetry EKG Findings - EKG Results: EKG: interpreted by FLORIAN, sinus rhythm (Sinus rhythm rate 69. Interval 146 QRS 72 QT since QTC 416/[address]-T wave changes) Medical Decision Making - Medical Decision Making I did discuss findings with patient family members had previously discuss case with DrCarolee also I'll the patient will be admitted for IV hydration and further evaluation I did discuss the case Dr. Cunningham. - Lab Data Result diagrams: 07/12/20 13:40 07/12/20 13:40 Lab Results 07/12/20 07/12/20 Range/Units 13:40 13:40 WBC 3.3 L (3.8-10.6) k/uL RBC 4.09 (3.80-5.40) m/uL Hgb 14.1 (11.4-16.0) gm/dL Hct 41.0 (34.0-46.0) % MCV 100.3 H (80.0-100.0) fL MCH 34.6 (25.0-35.0) pg MCHC 34.5 (31.0-37.0) g/dL RDW 15.7 H (11.5-15.5) % Plt Count 402 (150-450) k/uL MPV 6.7 Neutrophils % 67 % Lymphocytes % 24 % Monocytes % 4 % Eosinophils % 1 % Basophils % 1 % Neutrophils # 2.2 (1.3-7.7) k/uL Lymphocytes # 0.8 L (1.0-4.8) k/uL Monocytes # 0.1 (0-1.0) k/uL Eosinophils # 0.1 (0-0.7) k/uL Basophils # 0.0 (0-0.2) k/uL Macrocytosis Slight Sodium 136 L (137-145) mmol/L Potassium 4.7 (3.5-5.1) mmol/L Chloride 101 (98-107) mmol/L Carbon Dioxide 27 (22-30) mmol/L Anion Gap 8 mmol/L BUN 20 H (7-17) mg/dL Creatinine 0.58 (0.52-1.04) mg/dL Est GFR (CKD-EPI)AfAm >90 (>60 ml/min/1.73 sqM) Est GFR (CKD-EPI)NonAf >90 (>60 ml/min/1.73 sqM) Glucose 124 H (74-99) mg/dL Calcium 9.3 (8.4-10.2) mg/dL Magnesium 2.6 H (1.6-2.3) mg/dL Total Bilirubin 0.9 (0.2-1.3) mg/dL AST 141 H (14-36) U/L ALT 45 H (4-34) U/L Alkaline Phosphatase 138 H (38-126) U/L Creatine Kinase 67 (30-135) U/L Total Protein 7.7 (6.3-8.2) g/dL Albumin 4.3 (3.5-5.0) g/dL - Radiology Data Radiology results: report reviewed (I did review the imaging and report no acute findings.), image reviewed Disposition Clinical Impression: Dehydration, Weakness, Metastatic breast cancer, Failure to thrive Disposition: ADMITTED IP TO THIS [facility] Condition: Fair Referrals: Yovani Mathews MD [Primary Care Provider] - 1-2 days
--- NOTE | 2020-07-12 15:00 | XR ---
EXAMINATION TYPE: XR chest 2V DATE OF EXAM: 07/12/2020 COMPARISON: 07/09/2020. HISTORY: Weakness. History of breast cancer. TECHNIQUE: Frontal and lateral views of the chest are obtained. FINDINGS: There is no focal air space opacity, pleural effusion, or pneumothorax seen. The cardiac silhouette size is within normal limits. The osseous structures again show diffuse sclerotic change s of the axial and appendicular skeleton involving the spine ribs and shoulders, consistent with know n metastatic disease. There is chronic appearing moderate compression deformity of lower thoracic sis tebra. IMPRESSION: No acute cardiopulmonary process. Redemonstrated osseous metastatic disease.
[2020-07-12] MEDS ORDERED: NALOXONE 0.4 MG/ML 1 ML VIAL IV PRN ×2 (16:11→17:44)
[2020-07-12] MEDS ORDERED: ACETAMINOPHEN TAB 325 MG TAB PO PRN (16:11)
[2020-07-12] MEDS: SODIUM CHLORIDE 0.9% 1,000 ML IV SCH (16:27)
[2020-07-12 17:19] VITALS: RESP 16
[2020-07-12] MEDS ORDERED: ESCITALOPRAM 20 MG TAB PO SCH (17:30)
[2020-07-12] MEDS ORDERED: PALBOCICLIB 125 MG PO SCH (17:30)
[2020-07-12] MEDS ORDERED: LETROZOLE 2.5 MG TAB PO SCH (17:30)
[2020-07-12] MEDS ORDERED: LORATADINE 10 MG TAB PO SCH (17:30)
--- NOTE | 2020-07-12 17:55 | P.HPIM ---
History of Present Illness H&P Date: 07/12/20 Chief Complaint: weakness 74-year-old female with a history of metastatic breast cancer currently receiving letrozole and palbociclib presented to the ER as requested by her o ncologist because of lack of appetite, poor oral intake, generalized weakness and nausea and vomiting. Symptoms have been ongoing for weeks but worsened significantly over the past couple of days. She had a urinalysis done 2 days ago that was positive for pyuria, she was treated with Keflex by her oncologist. She denied having any chest pain or shortness of breath. No diarrhea or constipation. Denies urinary symptoms. Review of Systems Complete review of system performed, pertinent positives per HPI, otherwise negative Past Medical History Past Medical History: Cancer, Eye Disorder Additional Past Medical History / Comment(s): Current bilateral ear infections, ruptured rt eardrum, recent [facility] with UTI/ dehydration/malnurished/sepsis. has walker/weak gait, pt has metastatic breast cancer History of Any Multi-Drug Resistant Organisms: None Reported Additional Past Surgical History / Comment(s): L eye cataract removed-failed surgery and now has artificial retina. Past Anesthesia/Blood Transfusion Reactions: Family History of Problems w/ Anesthesia, Postoperative Nausea & Vomiting (PONV) Additional Past Anesthesia/Blood Transfusion Reaction / Comment(s): Pt has never received general/spinal anesthesia. daughter has PONV Past Psychological History: Anxiety, Depression Additional Psychological History / Comment(s): . Smoking Status: Never smoker Past Alcohol Use History: None Reported Past Drug Use History: None Reported - Past Family History Father Family Medical History: Cancer Additional Family Medical History / Comment(s): Father had prostate cancer. Medications and Allergies Home Medications Medication Instructions Recorded Confirmed Type Cetirizine HCl [Zyrtec] 10 mg PO W/SUPPER 09/18/18 07/12/20 History Cephalexin [Keflex] 250 mg PO Q6HR #28 cap 07/09/20 07/12/20 Rx Cholecalciferol [Vitamin D3 (25 1,000 unit PO DAILY 07/09/20 07/12/20 History Mcg = 1000 Iu)] Escitalopram [Lexapro] 20 mg PO W/SUPPER 07/09/20 07/12/20 History Letrozole [Femara] 2.5 mg PO W/SUPPER 07/09/20 07/12/20 History Multivitamins, Thera [Multivitamin 1 tab PO DAILY 07/09/20 07/12/20 History (formulary)] Palbociclib [Ibrance] 125 mg PO W/SUPPER 07/09/20 07/12/20 History Zinc 50 mg PO DAILY 07/09/20 07/12/20 History dronabinoL [Marinol] 5 mg PO W/SUPPER 07/09/20 07/12/20 History Allergies Allergy/AdvReac Type Severity Reaction Status Date / Time ibuprofen Allergy Unknown Verified 07/12/20 15:16 Physical Exam Vitals: Vital Signs Temp Pulse Pulse Resp BP BP Pulse Ox 07/12/20 17:10 98 F 67 16 143/83 97 07/12/20 16:30 98.5 F 67 18 157/83 98 07/12/20 16:00 18 98 07/12/20 15:00 67 18 157/83 98 07/12/20 14:27 65 18 137/74 98 07/12/20 13:21 98.5 F 92 20 117/77 97 Intake and Output 07/12/20 07/12/20 07/12/20 06:59 14:59 22:59 Other: Weight 60.781 kg 60.781 kg Constitutional: No acute distress, conversant, pleasant Eyes:Anicteric sclerae, moist conjunctiva, no lid-lag, PERRLA, ENMT: Oropharynx clear, no erythema, exudates Neck: Supple, FROM, no masses, or JVD, No carotid bruits, No thyromegaly Lungs: Clear to auscultation, Clear to percussion, Normal respiratory effort, no accessory muscle use Cardiovascular: Heart regular in rate and rhythm, No murmurs, gallops, or rubs, No peripheral edema Abdominal: Soft, Nontender, no guarding, rebound or rigidity, Normoactive bowel sounds, No hepatomegaly, No splenomegaly, No palpable mass Skin: Normal temperature, tone, texture, turgor, no induration, No subcutaneous nodules, No rash, lesions, No ulcers Extremities: No digital cyanosis, No clubbing, Pedal pulses intact and symmetrical, Radial pulses intact and symmetrical, No calf tenderness Psychiatric: Alert and oriented to person, place and time, appropriate affect, intact judgement Neuro: Muscles Strength 5/5 in all 4 extremities, Sensation to light touch grossly present throughout, Cranial nerves II-XII grossly intact, no focal sensory deficits Results CBC & Chem 7: 07/12/20 13:40 07/12/20 13:40 Labs: Abnormal Lab Results - Last 24 Hours (Table) 07/12/20 07/12/20 Range/Units 13:40 13:40 WBC 3.3 L (3.8-10.6) k/uL MCV 100.3 H (80.0-100.0) fL RDW 15.7 H (11.5-15.5) % Lymphocytes # 0.8 L (1.0-4.8) k/uL Sodium 136 L (137-145) mmol/L BUN 20 H (7-17) mg/dL Glucose 124 H (74-99) mg/dL Magnesium 2.6 H (1.6-2.3) mg/dL AST 141 H (14-36) U/L ALT 45 H (4-34) U/L Alkaline Phosphatase 138 H (38-126) U/L Thrombosis Risk Factor Assmnt - Choose All That Apply Any of the Below Risk Factors Present?: No Other Risk Factors: Yes Each Risk Factor Represents 2 Points: Age 61-74 years Thrombosis Risk Factor Assessment Total Risk Factor Score: 2 Thrombosis Risk Factor Assessment Level: Low Risk Assessment and Plan Plan: Urinary tract infection Start ceftriaxone 1 g IV daily Dehydration/adult failure to thrive/generalized weakness IV fluids Follow-up labs Metastatic breast cancer Continue home medications Depression Continue Lexapro Admitted to observation
[2020-07-12] MEDS ORDERED: CEPHALEXIN 250 MG CAP PO SCH (18:00)
[2020-07-13] MEDS: SODIUM CHLORIDE 0.9% 1,000 ML IV SCH ×2 (02:23→14:51)
[2020-07-13 04:13] LABS: Appearance,Urine Turbid (Clear); Bacteria,Urine Few /hpf; Bilirubin,Urine Negative (Negative); Blood,Urine Small (Negative); Color,Urine Yellow; Glucose,Urine (UA) Negative (Negative); Ketones,Urine 1+ (Negative); Leukocyte Esterase,Urine Large (Negative); Mucus,Urine Many /hpf; Nitrite,Urine Negative (Negative); PH, Urine 5.5 (5.0-8.0); Protein,Urine 1+ (Negative); RBC,Urine 33 /hpf (0-5); Specific Gravity,Urine 1.027 (1.001-1.035); Squamous Epithelial Cell,Urine 5 /hpf (0-4); Urobilinogen,Urine <2.0 mg/dL (<2.0); WBC,Urine >182 /hpf (0-5)
[2020-07-13] MEDS ORDERED: MULTIVITAMINS, THERA 1 EACH TAB PO SCH (09:00)
[2020-07-13] MEDS ORDERED: ZINC SULFATE 220 MG CAP PO SCH (09:00)
[2020-07-13] MEDS ORDERED: CHOLECALCIFEROL 1,000 UNIT TAB PO SCH (09:00)
[2020-07-13 11:07] LABS: Basophils % (A) 1 %; Eosinophils % (A) 2 %; HCT 32.6 % (34.0-46.0); HGB 11.3 gm/dL (11.4-16.0); Lymphocytes # (A) 0.6 k/uL (1.0-4.8); Lymphocytes % (A) 23 %; MCH 34.9 pg (25.0-35.0); MCHC 34.6 g/dL (31.0-37.0); Macrocytosis Slight; Mean Platelet Volume 6.4; Monocytes # (A) 0.1 k/uL (0-1.0); Monocytes % (A) 3 %; Neutrophils # (A) 1.9 k/uL (1.3-7.7); Neutrophils % (A) 70 %; Platelet Count 261 k/uL (150-450); RBC 3.23 m/uL (3.80-5.40); RDW 15.7 % (11.5-15.5); WBC 2.7 k/uL (3.8-10.6)
[2020-07-13 11:29] LABS: ALT 35 U/L (4-34); AST 146 U/L (14-36); African American GFR (CKD) >90 (>60 ml/min/1.73 sqM); Albumin 3.2 g/dL (3.5-5.0); Alkaline Phosphatase 114 U/L (38-126); Anion Gap 5 mmol/L; Blood Urea Nitrogen 13 mg/dL (7-17); Calcium 8.1 mg/dL (8.4-10.2); Carbon Dioxide 27 mmol/L (22-30); Chloride 105 mmol/L (98-107); Glucose 110 mg/dL (74-99); Magnesium 2.4 mg/dL (1.6-2.3); Non-African American GFR(CKD) >90 (>60 ml/min/1.73 sqM); Phosphorus 2.5 mg/dL (2.5-4.5); Sodium 137 mmol/L (137-145); Total Bilirubin 0.5 mg/dL (0.2-1.3); Total Protein 5.8 g/dL (6.3-8.2)
[2020-07-13 13:52] VITALS: BMI 22.3
[2020-07-13 14:43] VITALS: BP 147/74; PULSE 72; TEMP 97.9
--- NOTE | 2020-07-13 15:34 | P.DS ---
Providers Date of admission: 07/12/20 16:11 Expected date of discharge: 07/13/20 Attending physician: Escobar Cunningham MD Consults: 07/12/20 16:12 Consult Physician Routine Consulting Provider: Roney Bridges Consult Reason/Comments: Metastatic breast cancer, dehydration, failure to thrive Do you want consulting provider notified?: Yes Primary care physician: Yovani Kathleen [facility] [place] Course: 74-year-old female with a history of metastatic breast cancer currently receiving letrozole and palbociclib presented to the ER as requested by her oncologist because of lack of appetite, poor oral intake, generalized weakness and nausea and vomiting. Symptoms have been ongoing for weeks but worsened significantly over the past couple of days. She denied having any chest pain or shortness of breath. No diarrhea or constipation. Denies urinary symptoms. She had a urinalysis done 2 days ago that was positive for pyuria, she was treated with Keflex by her oncologist. Laboratory evaluation revealed elevated BUN or creatinine ratio indicating dehydration. Her CBC was unremarkable. Patient tested negative for covid 19. Urinalysis is indicated pyuria and likely urinary infection. Patient was admitted to observation, started on IV fluids and was treated with ceftriaxone 1 g IV daily for UTI. The next day patient was feeling stronger, overall better. She'll be discharged in a stable condition. Prescription for Bactrim for UTI will be provided upon discharge. Patient Condition at Discharge: Fair Plan - Discharge Summary Discharge Rx Participant: No New Discharge Prescriptions: New Sulfamethox-Tmp 800-160Mg [Bactrim DS 800-160 mg] 1 tab PO Q12HR 3 Days #6 tab Continue Cetirizine HCl [Zyrtec] 10 mg PO W/SUPPER Escitalopram [Lexapro] 20 mg PO W/SUPPER Cholecalciferol [Vitamin D3 (25 Mcg = 1000 Iu)] 1,000 unit PO DAILY dronabinoL [Marinol] 5 mg PO W/SUPPER Zinc 50 mg PO DAILY Multivitamins, Thera [Multivitamin (formulary)] 1 tab PO DAILY Letrozole [Femara] 2.5 mg PO W/SUPPER Palbociclib [Ibrance] 125 mg PO W/SUPPER Discontinued Cephalexin [Keflex] 250 mg PO Q6HR #28 cap Discharge Medication List Cetirizine HCl [Zyrtec] 10 mg PO W/SUPPER 09/18/18 [History] Cholecalciferol [Vitamin D3 (25 Mcg = 1000 Iu)] 1,000 unit PO DAILY 07/09/20 [History] Escitalopram [Lexapro] 20 mg PO W/SUPPER 07/09/20 [History] Letrozole [Femara] 2.5 mg PO W/SUPPER 07/09/20 [History] Multivitamins, Thera [Multivitamin (formulary)] 1 tab PO DAILY 07/09/20 [History] Palbociclib [Ibrance] 125 mg PO W/SUPPER 07/09/20 [History] Zinc 50 mg PO DAILY 07/09/20 [History] dronabinoL [Marinol] 5 mg PO W/SUPPER 07/09/20 [History] Sulfamethox-Tmp 800-160Mg [Bactrim DS 800-160 mg] 1 tab PO Q12HR 3 Days #6 tab 07/13/20 [Rx] Follow up Appointment(s)/Referral(s): Yovani Mathews MD [Primary Care Provider] - 1-2 days Patient Instructions/Handouts: Urinary Tract Infection in Women (DC), Malnutrition (DC), Weakness (DC)
== END 2020-07-13 16:39 | disposition home or self-care (01) ==
LOC: EC 13:06 → 1SOBS 16:11
PROVIDERS: ADMIT Internal Medicine; ATTEND Internal Medicine
DX: E86.0 Dehydration (principal); N39.0 Urinary tract infection, site not specified; R62.7 Adult failure to thrive; R63.0 Anorexia; C50.919 Malignant neoplasm of unspecified site of unspecified female breast; C79.9 Secondary malignant neoplasm of unspecified site; F32.9 Major depressive disorder, single episode, unspecified; H66.93 Otitis media, unspecified, bilateral; F41.9 Anxiety disorder, unspecified; Z79.899 Other long term (current) drug therapy; Z79.811 Long term (current) use of aromatase inhibitors; Z88.6 Allergy status to analgesic agent; Z86.69 Personal history of other diseases of the nervous system and sense organs; Z87.440 Personal history of urinary (tract) infections; Z86.39 Personal history of other endocrine, nutritional and metabolic disease; Z86.19 Personal history of other infectious and parasitic diseases; Z98.42 Cataract extraction status, left eye; Z96.89 Presence of other specified functional implants; Z68.22 Body mass index [BMI] 22.0-22.9, adult; Z84.89 Family history of other specified conditions; Z80.42 Family history of malignant neoplasm of prostate
CPT/HCPCS: 96365; 96366; 96361; 99285; 36415; 93005; 80053 ×2; 82550; 83735 ×2; 84100; 85025 ×2; 81001; 87086; 87077; 87186; 71046; G0378 ×2; Q0167; J0696 ×2

== ENCOUNTER 2020-07-14 16:57 | Inpatient (IN) | payer MEDICARE ==
[2020-07-14] MEDS ORDERED: ALPRAZolam 0.25 MG TAB PO PRN (19:35)
[2020-07-14] MEDS ORDERED: IOPAMIDOL CONTRAST (ORAL USE) VIAL PO PRN (19:35)
--- NOTE | 2020-07-14 19:40 | P.PN ---
Progress Note - Text Progress Note Date: 07/14/20 Patient with increased weakness, mental status changes, and decreased PO intake, weight loss 15lb in 10 days. She lives alone and concern for progression of disease versus infectious or psychological (depression) etiology. Admitted for further evaluation at the direction of primary oncologist Dr. Betancourt. Work-up placed, discussed with admitting team. Labs, imaging, dieticien, PT/OT orders placed.
[2020-07-14 20:33] LABS: Basophils % (A) 1 %; Eosinophils # (A) 0.1 k/uL (0-0.7); Eosinophils % (A) 2 %; HCT 36.9 % (34.0-46.0); HGB 12.8 gm/dL (11.4-16.0); Lymphocytes # (A) 0.7 k/uL (1.0-4.8); Lymphocytes % (A) 25 %; MCH 34.8 pg (25.0-35.0); MCHC 34.7 g/dL (31.0-37.0); MCV 100.2 fL (80.0-100.0); Macrocytosis Slight; Mean Platelet Volume 6.4; Monocytes # (A) 0.1 k/uL (0-1.0); Monocytes % (A) 4 %; Neutrophils # (A) 1.9 k/uL (1.3-7.7); Neutrophils % (A) 66 %; Platelet Count 286 k/uL (150-450); RBC 3.68 m/uL (3.80-5.40); RDW 15.9 % (11.5-15.5); WBC 2.9 k/uL (3.8-10.6)
[2020-07-14 20:45] LABS: ALT 38 U/L (4-34); AST 125 U/L (14-36); African American GFR (CKD) >90 (>60 ml/min/1.73 sqM); Albumin 3.5 g/dL (3.5-5.0); Albumin/Globulin Ratio 1.3; Alkaline Phosphatase 132 U/L (38-126); Amylase 38 U/L (30-110); Anion Gap 8 mmol/L; Blood Urea Nitrogen 10 mg/dL (7-17); Calcium 8.3 mg/dL (8.4-10.2); Carbon Dioxide 26 mmol/L (22-30); Chloride 101 mmol/L (98-107); Globulin 2.8 g/dL; Glucose 93 mg/dL (74-99); Lipase 94 U/L (23-300); Magnesium 2.4 mg/dL (1.6-2.3); Non-African American GFR(CKD) >90 (>60 ml/min/1.73 sqM); Phosphorus 2.7 mg/dL (2.5-4.5); Potassium 3.9 mmol/L (3.5-5.1); Sodium 135 mmol/L (137-145); Total Bilirubin 0.7 mg/dL (0.2-1.3); Total Protein 6.3 g/dL (6.3-8.2)
[2020-07-14 20:56] LABS: LDH 4044 U/L (313-618)
[2020-07-14] MEDS: SULFAMETHOX-TMP 800-160MG 1 EACH TAB PO SCH (22:06)
[2020-07-14] MEDS: ESCITALOPRAM 20 MG TAB PO SCH (22:06)
[2020-07-14] MEDS: FLUCONAZOLE 100 MG TAB PO SCH (22:07)
[2020-07-14] MEDS: DEXTROSE 5%-0.9% NACL 1,000 ML IV SCH (22:11)
[2020-07-14] MEDS: PANTOPRAZOLE SODIUM 40 MG GRANULE PKT PO SCH (22:40)
--- NOTE | 2020-07-14 23:38 | P.HPIM ---
History of Present Illness H&P Date: 07/14/20 Patient is a 74-year-old female with a PMH of stage IV breast cancer in remission (on Ibrance and Letrozole) who was directly admitted from [facility] due to failure to thrive. The patient reports that over the past 2 weeks, she has had a significantly decreased appetite along with mild intermit tent nausea. She reports having lost 15 pounds of weight during this time. Reports feeling fatigued but denied additional complaints. Denied abdominal pain, dysuria, vomiting, diarrhea, cough, chest pain, shortness of breath. Discussed the case in detail with Dulce Perea from the Oncology service. She noted that they plan to order CT Chest/abd/pelvis along with MRI brain to evaluate for possible progression of disease. Laboratory evaluation was reviewed and was remarkable for AST 125, ALT 38, LDH 4044, alk phos 132, WBC count 2.9, hemoglobin 12.8, sodium 135. Review of Systems Pertinent positives and negatives as discussed in HPI, a complete review of systems was performed and all other systems are negative. Past Medical History Past Medical History: Cancer, Eye Disorder Additional Past Medical History / Comment(s): Current bilateral ear infections, ruptured rt eardrum, recent [facility] admit with UTI/ dehydration/malnurished/sepsis. has walker/weak gait, pt has metastatic breast cancer History of Any Multi-Drug Resistant Organisms: None Reported Additional Past Surgical History / Comment(s): L eye cataract removed-failed surgery and now has artificial retina. Past Anesthesia/Blood Transfusion Reactions: Family History of Problems w/ Anesthesia, Postoperative Nausea & Vomiting (PONV) Additional Past Anesthesia/Blood Transfusion Reaction / Comment(s): Pt has never received general/spinal anesthesia. daughter has PONV Past Psychological History: Anxiety, Depression Additional Psychological History / Comment(s): . Smoking Status: Never smoker Past Alcohol Use History: None Reported Past Drug Use History: None Reported - Past Family History Father Family Medical History: Cancer Additional Family Medical History / Comment(s): Father had prostate cancer. Medications and Allergies Home Medications Medication Instructions Recorded Confirmed Type Cetirizine HCl [Zyrtec] 10 mg PO W/SUPPER 09/18/18 07/14/20 History Cholecalciferol [Vitamin D3 (25 1,000 unit PO DAILY 07/09/20 07/14/20 History Mcg = 1000 Iu)] Escitalopram [Lexapro] 20 mg PO W/SUPPER 07/09/20 07/14/20 History Letrozole [Femara] 2.5 mg PO W/SUPPER 07/09/20 07/14/20 History Multivitamins, Thera [Multivitamin 1 tab PO DAILY 07/09/20 07/14/20 History (formulary)] Palbociclib [Ibrance] 125 mg PO W/SUPPER 07/09/20 07/14/20 History Zinc 50 mg PO DAILY 07/09/20 07/14/20 History dronabinoL [Marinol] 5 mg PO W/SUPPER 07/09/20 07/14/20 History Sulfamethox-Tmp 800-160Mg [Bactrim 1 tab PO Q12HR 3 Days #6 tab 07/13/20 07/14/20 Rx DS 800-160 mg] methylPREDNISolone Dose Pack See Taper PO DIRECTED 07/14/20 07/14/20 History [Medrol Dose Pack] Allergies Allergy/AdvReac Type Severity Reaction Status Date / Time ibuprofen Allergy Unknown Verified 07/14/20 19:01 Physical Exam Vitals: Vital Signs Temp Pulse Resp BP Pulse Ox 07/14/20 19:37 97.4 F L 72 16 106/63 98 07/14/20 18:13 97.3 F L 77 17 135/65 98 Intake and Output 07/14/20 07/14/20 07/14/20 06:59 14:59 22:59 Other: Weight 60.1 kg General: non toxic, no distress, appears at stated age, normal weight Derm: no unusual rashes/lesions no unusual ecchymoses, warm, dry Head: atraumatic, normocephalic, symmetric Eyes: EOMI, no lid lag, anicteric sclera, pupils equal round reactive to light ENT: Nose and ears atraumatic, no thrush, no pharyngeal erythema Neck: No thyromegaly, no cervical lymphadenopathy, trachea midline, supple Mouth: no lip lesion, mucus membranes moist Cardiovascular: S1S2 reg, no murmur, positive posterior tibial pulse bilateral, no edema, capillary refill less than 2 seconds Lungs: CTA bilateral, no rhonchi, no rales , no accessory muscle use Abdominal: soft, nontender to palpation, no guarding, no appreciable organomegaly, normal bowel sounds Ext: no gross muscle atrophy, muscle strength 5 out of 5 in all 4 extremities grossly, no contractures, Neuro: CN II-XI grossly intact, light touch intact all 4 extremities, finger to nose within normal limits, Psych: Alert, oriented, appropriate affect Results CBC & Chem 7: 07/14/20 20:02 07/14/20 20:02 Labs: Abnormal Lab Results - Last 24 Hours (Table) 07/14/20 Range/Units 20:02 WBC 2.9 L (3.8-10.6) k/uL RBC 3.68 L (3.80-5.40) m/uL MCV 100.2 H (80.0-100.0) fL RDW 15.9 H (11.5-15.5) % Lymphocytes # 0.7 L (1.0-4.8) k/uL Assessment and Plan Plan: Failure to thrive, in setting of metastatic breast cancer -Oncology consult -PT evaluation -Continue with IV fluids -Fall precautions -Imagine ordered by Oncology UTI -C/w Bactrim -Urine culture pending Abnormal LFTs -Workup ordered DVT prophylaxis -Lovenox The patient is admitted with an anticipated greater than 2 midnight stay for e valuation of failure to thrive CODE STATUS: Full Code Discussed with: Patient Anticipated discharge date: 07/[address]: Home A total of 35 minutes was spent on the care of this complex patient more than 50% of the time was spent in counseling and care coordination.
[2020-07-14] MEDS ORDERED: SODIUM CHLORIDE 0.9% 1,000 ML IV SCH (23:45)
[2020-07-15 06:43] LABS: Basophils % (A) 1 %; Eosinophils % (A) 2 %; HCT 34.2 % (34.0-46.0); HGB 11.6 gm/dL (11.4-16.0); Lymphocytes # (A) 0.9 k/uL (1.0-4.8); Lymphocytes % (A) 37 %; MCH 34.3 pg (25.0-35.0); MCV 100.9 fL (80.0-100.0); Macrocytosis Slight; Mean Platelet Volume 6.6; Monocytes # (A) 0.1 k/uL (0-1.0); Monocytes % (A) 5 %; Neutrophils # (A) 1.4 k/uL (1.3-7.7); Neutrophils % (A) 54 %; Platelet Count 278 k/uL (150-450); RBC 3.39 m/uL (3.80-5.40); RDW 15.9 % (11.5-15.5); WBC 2.6 k/uL (3.8-10.6)
[2020-07-15] MEDS: DEXTROSE 5%-0.9% NACL 1,000 ML IV SCH ×3 (07:11→21:37)
[2020-07-15 07:20] LABS: Cancer Antigen 153 167.2 U/mL (0.0-32.3); Folate, Serum 14.8 ng/mL
[2020-07-15] MEDS: ENOXAPARIN 40 MG/0.4 ML SYRINGE SQ SCH (08:57)
[2020-07-15] MEDS: SULFAMETHOX-TMP 800-160MG 1 EACH TAB PO SCH (08:58)
[2020-07-15] MEDS: PANTOPRAZOLE SODIUM 40 MG GRANULE PKT PO SCH (08:58)
[2020-07-15] MEDS: FLUCONAZOLE 100 MG TAB PO SCH (08:58)
[2020-07-15 11:00] LABS: African American GFR (CKD) 105.5 (60.0-200.0); Albumin 3.8 g/dL (3.80-4.90); Albumin/Globulin Ratio 2.24 (1.60-3.17); Anion Gap 12.1 mmol/L (4.00-12.00); BUN/Creat Ratio 23.33 Ratio (12.00-20.00); Calcium 8.1 mg/dL (8.7-10.3); Carbon Dioxide 23.9 mmol/L (21.6-31.8); Globulin 1.7 g/dL (1.6-3.3); Non-African American GFR(CKD) 91.1 (60.0-200.0); Potassium 3.7 mmol/L (3.5-5.5); Total Bilirubin 0.5 mg/dL (0.3-1.2); Total Protein 5.5 g/dL (6.2-8.2)
--- NOTE | 2020-07-15 11:35 | P.PN ---
Subjective Progress Note Date: 07/15/20 Patient is doing well today. She does not have any complaint this morning. She ate some of her breakfast and denies any nausea. She is scheduled for multiple tests and imaging as ordered by oncology today. No acute events overnight reported to me by nursing staff. Objective - Vital Signs Vital signs: Vital Signs Temp 97.5 F L 07/15/20 07:40 Pulse 72 07/15/20 07:40 Resp 22 07/15/20 07:40 BP 112/63 07/15/20 07:40 Pulse Ox 93 L 07/15/20 07:40 Intake & Output 07/14/20 07/15/20 07/15/20 18:59 06:59 18:59 Intake Total 150 Balance 150 Weight 60.1 kg Intake: Oral 150 - Exam General: The patient is awake and alert, in no distress Eye: there is normal conjunctiva bilaterally. Neck: The neck is supple, there is no JVD. Cardiovascular: Normal S1-S2, no S3-S4, no murmurs. Respiratory: Lungs clear to auscultation bilaterally Gastrointestinal: Abdomen is soft, nontender Musculoskeletal: There is no pedal edema. Neurological:. Speech is normal. Skin: Skin is warm and dry - Labs CBC & Chem 7: 07/15/20 05:53 07/15/20 05:53 Labs: Abnormal Lab Results - Last 24 Hours (Table) 07/14/20 07/14/20 07/14/20 Range/Units 20:02 20:02 20:02 WBC 2.9 L (3.8-10.6) k/uL RBC 3.68 L (3.80-5.40) m/uL MCV 100.2 H (80.0-100.0) fL RDW 15.9 H (11.5-15.5) % Lymphocytes # 0.7 L (1.0-4.8) k/uL Sodium 135 L (137-145) mmol/L Anion Gap (4.00-12.00) mmol/L BUN/Creatinine Ratio (12.00-20.00) Ratio Calcium 8.3 L (8.4-10.2) mg/dL Magnesium 2.4 H (1.6-2.3) mg/dL AST 125 H (14-36) U/L ALT 38 H (4-34) U/L Alkaline Phosphatase 132 H (38-126) U/L Lactate Dehydrogenase 4044 H (313-618) U/L Total Protein (6.2-8.2) g/dL CA 15-3 Antigen 167.2 H (0.0-32.3) U/mL CA 27-29 464.5 H (0.0-38.5) U/mL Vitamin D 25-Hydroxy 29.9 L (30.0-100.0) ng/mL 07/15/20 07/15/20 Range/Units 05:53 05:53 WBC 2.6 L (3.8-10.6) k/uL RBC 3.39 L (3.80-5.40) m/uL MCV 100.9 H (80.0-100.0) fL RDW 15.9 H (11.5-15.5) % Lymphocytes # 0.9 L (1.0-4.8) k/uL Sodium (137-145) mmol/L Anion Gap 12.10 H (4.00-12.00) mmol/L BUN/Creatinine Ratio 23.33 H (12.00-20.00) Ratio Calcium 8.1 L (8.4-10.2) mg/dL Magnesium (1.6-2.3) mg/dL AST 106 H (14-36) U/L ALT (4-34) U/L Alkaline Phosphatase (38-126) U/L Lactate Dehydrogenase (313-618) U/L Total Protein 5.5 L (6.2-8.2) g/dL CA 15-3 Antigen (0.0-32.3) U/mL CA 27-29 (0.0-38.5) U/mL Vitamin D 25-Hydroxy (30.0-100.0) ng/mL Assessment and Plan Assessment: This is a 74-year-old female admitted to the hospital as directed by her oncologist for further evaluation of failure to thrive and concerns about spreading of her underlying malignancy. She was evaluated and admitted for further management of her medical problems noted below. Failure to thrive, in setting of metastatic breast cancer -Oncology consult, MRI of the brain and CT body ordered -PT evaluation -Continue with IV fluids -Fall precautions UTI -C/w Bactrim -Urine culture pending Abnormal LFTs DVT prophylaxis -Lovenox The patient is admitted with an anticipated greater than 2 midnight stay for evaluation of failure to thrive CODE STATUS: Full Code Discussed with: Patient Anticipated discharge date: 07/[address]: Home A total of 35 minutes was spent on the care of this complex patient more than 50% of the time was spent in counseling and care coordination.
--- NOTE | 2020-07-15 12:02 | MR ---
EXAMINATION TYPE: MR brain wo/w con DATE OF EXAM: 07/15/2020 COMPARISON: None HISTORY: Evaluation of possible progression of cancer, Hx of breast Ca CONTRAST: Performed utilizing 6 mL intravenous Gadavist gadolinium contrast. TECHNIQUE: Multiplanar, multiecho imaging on a 3.0 Maria Alejandra magnet is performed through the brain. Stud y is performed within 24 hours of arrival to the hospital. The craniovertebral junction is normal. The pituitary is normal. Diffusion-weighted imaging is performed. No abnormal hyperintensity is present to suggest an acute i ntracranial infarct or acute ischemic change. There is diffuse vasogenic type edema through the right temporal lobe. There is an area of enhanceme nt measuring 1.5 x 0.9 cm along the anterior tip of the right temporal lobe. Series 701 image 12. Thi s may extend under the temporal lobe in the right middle cranial fossa. Findings are suspicious for a metastatic lesion. There are scattered periventricular white matter hyperintensities likely on the basis of chronic whit e matter ischemic change. Additional subcortical and deep white matter changes including the brainste m are present more likely related to microvascular ischemic change Ventricles and sulci are somewhat prominent for the patient age. IMPRESSIONS: 1. There appears to be some enhancement along the extra-axial right temporal and inferior temporal lo be with adjacent vasogenic edema suspicious for metastatic disease. 2. Age-related atrophy with periventricular deep white matter chronic ischemic type changes
[2020-07-15 13:44] VITALS: BMI 25.0
--- NOTE | 2020-07-15 14:18 | CT ---
EXAMINATION TYPE: CT ChestAbdPelvis w con DATE OF EXAM: 07/15/2020 INDICATION: restaging breast CA COMPARISON: 12/31/2019 CT DLP: 538.2 mGycm CONTRAST: Performed with Oral Contrast and with IV Contrast, patient injected with 100 mL of Isovue 300. TECHNIQUE: Axial images at 5 mm thick sections. Reconstructed images in the coronal plane. Delayed images through the kidneys. FINDINGS: CT CHEST: Portion of the thyroid visualized is a small hypodensity within the inferior left lobe thyroid was pr esent previously and appears stable. There is a 0.4 cm hypodense dense nodule within the posterior right lung, series 4 image 12. Minimal pleural effusions are present. Some adjacent compressive atelectasis is present. No enlarged mediastinal or hilar adenopathy is evident. The ascending aorta diameter at the level of the main pulmonary artery is 3.0 cm. The main pulmonary artery diameter at the bifurcation is 2.[address] ABDOMEN: Moderately large hiatal hernia is within the lower chest. Liver: Normal Spleen: Normal Pancreas: Normal Adrenal glands: There is thickening of the bilateral adrenal gland measuring 2.0 cm on the right 1.3 cm on the left. These are interval changes evident should be considered suspicious. Gallbladder: Some gallbladder wall calcification may be present. Kidneys: No masses are evident. Bilateral inferior pole peripelvic cysts are present. No cysts are pr esent. Delayed images were obtained through the kidneys, which remain unremarkable. Aorta: Vascular calcification is within the aorta. Inferior vena cava: Normal. CT PELVIS: Loops of bowel within the abdomen and pelvis are normal. There are loops of bowel which are incom pletely distended or lack oral contrast limiting their evaluation. Appendix: Not clearly identified. No dilated tubular structure or inflammatory changes evident. Urinary bladder: Normal. Genitourinary structures: Uterus is in a normal position. A slightly hyperdense uterine fibroid may b e present. Adnexal regions are clear. Osseous structures: Diffuse bony metastasis again evident throughout the axial and appendicular skele ton. IMPRESSIONS: 1. Stable posterior right upper lobe nodule. 2. Interval thickening of the bilateral adrenal gland should be considered suspicious for metastatic lesions. 3. Gallbladder wall calcification. 4. Peripelvic cysts inferior poles bilateral kidneys. 5. Moderately large hiatal hernia. #6 diffuse osseous metastasis
--- NOTE | 2020-07-15 14:27 | P.CONS ---
History of Present Illness - Reason for Consult Consult date: 07/15/20 breast cancer Requesting physician: Alexa Stone - Chief Complaint wt loss, confusion - History of Present Illness Pt is a very pleasant female well know to the practice. She initially presented to [facility] 09/18/2018 with progressive weakness, failure to thrive, anorexia & weight loss-50 Lbs in 6 months. She was found to have right breast mass, patient stated being present for years but neglected to seek medical evaluation and did not tell her family. Lab studies revealed normocytic anemia, leukocytosis with presence of blasts on peripheral blood. CT CAP showed stea tohepatitis with compression deformity of T11. Bone scan revealed diffuse bone mets. R Breast core biopsy 09/19/2018 revealed infiltrating moderately differentiated adenocarcinoma with features of Lobular carcinoma. ER/NC 100%/100% [id number] +2 IHC, neg by FISH. She was started on Ibrance and Femara 09/2018. She receives xgeva for bone mets. Has done well until last 2-3 weeks. She lost her appetite, her affect is more flat, mild confusion, weakness has increased, denies any unusual pain. Sent to hospital for work up. When seen pt is not her talkative self, she is very pleasant, denies fever, nausea, chest pain, ABY, abd pain, she is not moving around much. Review of Systems 10 point ROS is negative except as stated in HPI Past Medical History Past Medical History: Cancer, Eye Disorder Additional Past Medical History / Comment(s): Current bilateral ear infections, ruptured rt eardrum, recent [facility] admit with UTI/ dehydration/malnurished/sepsis. has walker/weak gait, pt has metastatic breast cancer History of Any Multi-Drug Resistant Organisms: None Reported Past Surgical History: No Surgical Hx Reported Additional Past Surgical History / Comment(s): L eye cataract removed-failed surgery and now has artificial retina. Past Anesthesia/Blood Transfusion Reactions: Family History of Problems w/ Anesthesia, Postoperative Nausea & Vomiting (PONV) Additional Past Anesthesia/Blood Transfusion Reaction / Comm: Pt has never received general/spinal anesthesia. daughter has PONV Past Psychological History: Anxiety, Depression Additional Psychological History / Comment(s): . Smoking Status: Never smoker Past Alcohol Use History: None Reported Past Drug Use History: None Reported - Past Family History Father Family Medical History: Cancer Additional Family Medical History / Comment(s): Father had prostate cancer. Medications and Allergies Home Medications Medication Instructions Recorded Confirmed Type Cetirizine HCl [Zyrtec] 10 mg PO W/SUPPER 09/18/18 07/14/20 History Cholecalciferol [Vitamin D3 (25 1,000 unit PO DAILY 07/09/20 07/14/20 History Mcg = 1000 Iu)] Escitalopram [Lexapro] 20 mg PO W/SUPPER 07/09/20 07/14/20 History Letrozole [Femara] 2.5 mg PO W/SUPPER 07/09/20 07/14/20 History Multivitamins, Thera [Multivitamin 1 tab PO DAILY 07/09/20 07/14/20 History (formulary)] Palbociclib [Ibrance] 125 mg PO W/SUPPER 07/09/20 07/14/20 History Zinc 50 mg PO DAILY 07/09/20 07/14/20 History dronabinoL [Marinol] 5 mg PO W/SUPPER 07/09/20 07/14/20 History Sulfamethox-Tmp 800-160Mg [Bactrim 1 tab PO Q12HR 3 Days #6 tab 07/13/20 07/14/20 Rx DS 800-160 mg] methylPREDNISolone Dose Pack See Taper PO DIRECTED 07/14/20 07/14/20 History [Medrol Dose Pack] Allergies Allergy/AdvReac Type Severity Reaction Status Date / Time ibuprofen Allergy Unknown Verified 07/14/20 19:01 Physical Exam Vitals: Vital Signs Temp Pulse Resp BP Pulse Ox 07/15/20 07:40 97.5 F L 72 22 112/63 93 L 07/15/20 02:00 97.8 F 76 14 99/56 96 07/14/20 19:37 97.4 F L 72 16 106/63 98 07/14/20 18:13 97.3 F L 77 17 135/65 98 Intake and Output 07/14/20 07/15/20 07/15/20 22:59 06:59 14:59 Intake Total 150 Balance 150 Intake: Oral 150 Other: Weight 60.1 kg - Constitutional General appearance: cooperative, no acute distress, thin - EENT Eyes: anicteric sclerae, EOMI ENT: hearing grossly normal, normal oropharynx - Neck Neck: no lymphadenopathy - Respiratory Respiratory: bilateral: CTA - Cardiovascular Rhythm: regular Heart sounds: normal: S1, S2 Abnormal Heart Sounds: no systolic murmur, no diastolic murmur, no rub, no S3 Gallop, no S4 Gallop, no click, no other leg Peripheral Edema: bilateral: None - Gastrointestinal General gastrointestinal: no absent bowel sounds, no decreased bowel sounds, no distended, no hepatomegaly, no hyperactive bowel sounds, normal bowel sounds, no organomegaly, no rigid, no scaphoid, soft, no splenomegaly, no tenderness, no um bilical hernia, no ventral hernia - Integumentary Integumentary: normal - Neurologic Neurologic: CNII-XII intact - Musculoskeletal Musculoskeletal: generalized weakness, strength equal bilaterally - Psychiatric Psychiatric: A&O x's 3, appropriate affect, intact judgment & insight Results CBC & Chem 7: 07/15/20 05:53 07/15/20 05:53 Labs: Abnormal Lab Results - Last 24 Hours (Table) 07/14/20 07/14/20 07/14/20 Range/Units 20:02 20:02 20:02 WBC 2.9 L (3.8-10.6) k/uL RBC 3.68 L (3.80-5.40) m/uL MCV 100.2 H (80.0-100.0) fL RDW 15.9 H (11.5-15.5) % Lymphocytes # 0.7 L (1.0-4.8) k/uL Sodium 135 L (137-145) mmol/L Calcium 8.3 L (8.4-10.2) mg/dL Magnesium 2.4 H (1.6-2.3) mg/dL AST 125 H (14-36) U/L ALT 38 H (4-34) U/L Alkaline Phosphatase 132 H (38-126) U/L Lactate Dehydrogenase 4044 H (313-618) U/L CA 15-3 Antigen 167.2 H (0.0-32.3) U/mL CA 27-29 464.5 H (0.0-38.5) U/mL Vitamin D 25-Hydroxy 29.9 L (30.0-100.0) ng/mL 07/15/20 Range/Units 05:53 WBC 2.6 L (3.8-10.6) k/uL RBC 3.39 L (3.80-5.40) m/uL MCV 100.9 H (80.0-100.0) fL RDW 15.9 H (11.5-15.5) % Lymphocytes # 0.9 L (1.0-4.8) k/uL Sodium (137-145) mmol/L Calcium (8.4-10.2) mg/dL Magnesium (1.6-2.3) mg/dL AST (14-36) U/L ALT (4-34) U/L Alkaline Phosphatase (38-126) U/L Lactate Dehydrogenase (313-618) U/L CA 15-3 Antigen (0.0-32.3) U/mL CA 27-29 (0.0-38.5) U/mL Vitamin D 25-Hydroxy (30.0-100.0) ng/mL MRI - head: report reviewed Assessment and Plan (1) Failure to thrive Current Visit: Yes Status: Acute Priority: High Code(s): ZUM8267 - SNOMED Code(s): 35049135 (2) Weakness Current Visit: Yes Status: Acute Priority: High Code(s): R53.1 - WEAKNESS SNOMED Code(s): 71968247 (3) Metastatic breast cancer Current Visit: Yes Status: Chronic Priority: Medium Code(s): C50.919 - MALIGNANT NEOPLASM OF UNSP SITE OF UNSPECIFIED FEMALE BREAST SNOMED Code(s): 711447672 Plan: Tumor markers are stable when compared with last results Pending CT CAP and brain MRI-breast cancer treatment restaging, new onset wt. loss Pending collection of urine for UA and C&S Reviewed with pt concerns for UTI vs cancer progression. Work up in progress. May be medication effect. Pt questioned about possible depression, seems less likely but, will consider Psychiatry consult if her symptoms to not begin to im prove shortly. MRI brain results reviewed after pt seen. Primary Oncologist is going to talk with daughter today. Plan for family meeting 07/16 in the AM. Discussed with Nursing that we do not want pt to get MRI results without family there. Oncology will deliver the news tomorrow. Doctor attests: I performed a history and physical examination of this patient, developed impression and plan of care. Discussed with dictator. I agree with dictators note, documented as a scribe. Time with Patient: Greater than 30
[2020-07-15] MEDS ORDERED: DEXAMETHASONE SOD PHOSPHATE 4 MG/ML 1 ML VIAL IV SCH (16:00)
[2020-07-15] MEDS: LETROZOLE 2.5 MG TAB PO SCH (17:01)
[2020-07-15] MEDS: ONDANSETRON 4 MG/2 ML VIAL IVP PRN (17:58)
[2020-07-15] MEDS: LORATADINE 10 MG TAB PO SCH (18:00)
[2020-07-15] MEDS: dexAMETHasone 4 MG TAB PO SCH (18:00)
[2020-07-15] MEDS: ESCITALOPRAM 20 MG TAB PO SCH (18:01)
[2020-07-15 18:15] LABS: Appearance,Urine Clear (Clear); Bilirubin,Urine Negative (Negative); Blood,Urine Negative (Negative); Color,Urine Yellow; Glucose,Urine (UA) Negative (Negative); Ketones,Urine Negative (Negative); Leukocyte Esterase,Urine Trace (Negative); Mucus,Urine Rare /hpf; Nitrite,Urine Negative (Negative); Protein,Urine Negative (Negative); RBC,Urine 5 /hpf (0-5); Squamous Epithelial Cell,Urine <1 /hpf (0-4); Urobilinogen,Urine <2.0 mg/dL (<2.0); WBC,Urine 1 /hpf (0-5)
[2020-07-15 18:23] LABS: Specific Gravity,Urine >1.050 (1.001-1.035)
[2020-07-16] MEDS: ONDANSETRON 4 MG/2 ML VIAL IVP PRN ×4 (00:01→18:18)
[2020-07-16] MEDS: dexAMETHasone 4 MG TAB PO SCH ×4 (00:04→23:36)
[2020-07-16] MEDS: PANTOPRAZOLE 40 MG/10 ML VIAL IVP SCH (07:41)
[2020-07-16] MEDS: ENOXAPARIN 40 MG/0.4 ML SYRINGE SQ SCH (07:41)
[2020-07-16] MEDS: FLUCONAZOLE 100 MG TAB PO SCH (07:42)
[2020-07-16] MEDS: DEXTROSE 5%-0.9% NACL 1,000 ML IV SCH ×2 (12:23→18:22)
--- NOTE | 2020-07-16 14:18 | P.PN ---
Subjective Progress Note Date: 07/16/20 No acute events overnight reported by nursing staff Objective - Vital Signs Vital signs: Vital Signs Temp 97.8 F 07/16/20 12:23 Pulse 77 07/16/20 12:23 Resp 18 07/16/20 12:23 BP 128/71 07/16/20 12:23 Pulse Ox 96 07/16/20 12:23 Intake & Output 07/15/20 07/16/20 07/16/20 18:59 06:59 18:59 Weight 60.1 kg Other: Voiding Method Toilet Toilet Diaper Incontinent - Exam General: The patient is awake and alert, in no distress Eye: there is normal conjunctiva bilaterally. Neck: The neck is supple, there is no JVD. Cardiovascular: Normal S1-S2, no S3-S4, no murmurs. Respiratory: Lungs clear to auscultation bilaterally Gastrointestinal: Abdomen is soft, nontender Musculoskeletal: There is no pedal edema. Neurological:. Speech is normal. Skin: Skin is warm and dry - Labs CBC & Chem 7: 07/15/20 05:53 07/15/20 05:53 Labs: Abnormal Lab Results - Last 24 Hours (Table) 07/14/20 Range/Units 18:10 Ur Specific [place] >1.050 H (1.001-1.035) Ur Leukocyte Esterase Trace H (Negative) Urine Mucus Rare H (None) /hpf Microbiology - Last 24 Hours (Table) 07/14/20 20:02 Blood Culture - Preliminary Blood No Growth after 24 hours 07/14/20 20:05 Blood Culture - Preliminary Blood No Growth after 24 hours Assessment and Plan Assessment: This is a 74-year-old female admitted to the hospital as directed by her oncologist for further evaluation of failure to thrive and concerns about spreading of her underlying malignancy. She was evaluated and admitted for further management of her medical problems noted below. Failure to thrive, in setting of metastatic breast cancer -Imaging during this admission including MRI of the brain and CT body showed worsening metastatic disease -Oncology at the meeting with patient's daughter and family today regarding hospice awaiting final recommendation UTI -On IV ceftriaxone awaiting urine culture Abnormal LFTs DVT prophylaxis -Lovenox The patient is admitted with an anticipated greater than 2 midnight stay for evaluation of failure to thrive CODE STATUS: Full Code Discussed with: Patient Anticipated discharge date: Pending family decision regarding hospice Anticipated discharge place: ? A total of 35 minutes was spent on the care of this complex patient more than 50% of the time was spent in counseling and care coordination.
[2020-07-16 14:21] LABS: African American GFR (CKD) 100.3 (60.0-200.0); Albumin/Globulin Ratio 2.11 (1.60-3.17); Anion Gap 16.1 mmol/L (4.00-12.00); BUN/Creat Ratio 22.86 Ratio (12.00-20.00); Carbon Dioxide 17.9 mmol/L (21.6-31.8); Globulin 1.9 g/dL (1.6-3.3); Non-African American GFR(CKD) 86.6 (60.0-200.0); Total Bilirubin 0.4 mg/dL (0.2-1.2); Total Protein 5.9 g/dL (6.2-8.2)
--- NOTE | 2020-07-16 14:43 | P.PN ---
Subjective Progress Note Date: 07/16/20 Principal diagnosis: failure to thrive Pt is tired today. Daughter states she did get to eat this AM. No acute pain Objective - Vital Signs Vital signs: Vital Signs Temp 97.2 F L 07/16/20 01:48 Pulse 60 07/16/20 07:05 Resp 16 07/16/20 07:05 BP 103/65 07/16/20 07:05 Pulse Ox 93 L 07/16/20 07:05 Intake & Output 07/15/20 07/16/20 07/16/20 18:59 06:59 18:59 Weight 60.1 kg Other: Voiding Method Toilet - Constitutional General appearance: Present: cooperative, no acute distress, thin - EENT Eyes: Present: anicteric sclerae, EOMI - Respiratory Respiratory: bilateral: CTA - Cardiovascular Heart sounds: normal: S1, S2 - Peripheral edema leg Peripheral Edema: bilateral: None - Gastrointestinal General gastrointestinal: Present: normal bowel sounds, scaphoid, soft - Musculoskeletal Musculoskeletal: Present: generalized weakness - Psychiatric Psychiatric: Present: A&O x's 3, appropriate affect, intact judgment & insight - Labs CBC & Chem 7: 07/15/20 05:53 07/16/20 06:45 Labs: Abnormal Lab Results - Last 24 Hours (Table) 07/14/20 07/15/20 Range/Units 18:10 05:53 Anion Gap 12.10 H (4.00-12.00) mmol/L BUN/Creatinine Ratio 23.33 H (12.00-20.00) Ratio Calcium 8.1 L (8.7-10.3) mg/dL AST 106 H (13-35) U/L Total Protein 5.5 L (6.2-8.2) g/dL Ur Specific Amelia >1.050 H (1.001-1.035) Ur Leukocyte Esterase Trace H (Negative) Urine Mucus Rare H (None) /hpf Microbiology - Last 24 Hours (Table) 07/14/20 20:02 Blood Culture - Preliminary Blood No Growth after 24 hours 07/14/20 20:05 Blood Culture - Preliminary Blood No Growth after 24 hours - Imaging and Cardiology CT scan - abdomen: report reviewed CT scan - chest: report reviewed CT scan - pelvis: report reviewed MRI - head: report reviewed Assessment and Plan (1) Failure to thrive Current Visit: Yes Status: Acute Priority: High Code(s): PDD9246 - SNOMED Code(s): 95192607 (2) Weakness Current Visit: Yes Status: Acute Priority: High Code(s): R53.1 - WEAKNESS SNOMED Code(s): 56581715 (3) Metastatic breast cancer Current Visit: Yes Status: Chronic Priority: Medium Code(s): C50.919 - MALIGNANT NEOPLASM OF UNSP SITE OF UNSPECIFIED FEMALE BREAST SNOMED Code(s): 384884551 Plan: Tumor markers are stable when compared with last results CT CAP stable. Brain MRI + for met. UA not suspicious, abx will be stopped in AM if all cultures return negative Dr. Bridges had long discussion with pt and daughter. He reviewed stable CT CAP, new brain mets. Treatment options, prognosis and option for comfort measures all reviewed. All questions answered. Plan is for outpt SRS to brain met and cont AI and CDK 4/6. She will remain on dex , taper will begin once she has been seen by Rad Onc and started on SRS. Doctor attests: I performed a history and physical examination of this patient, developed impression and plan of care. Discussed with dictator. I agree with dictators note, documented as a scribe. Time with Patient: Greater than 30
--- NOTE | 2020-07-16 16:40 | CDI ---
Documentation Clarification Form Date: 07/16/2020 03:59:37 PM From: Jacqueline Aleman RN CCDS Admit Date: 07/14/2020 05:50:00 PM Patient Name: Kyara Cantrell Visit Number: [id number] Discharge Date: ATTENTION: The Clinical Documentation Specialists (CDI) and [facility] Coding Staff appreciate your assistance in clarifying documentation. Please respond to the clarification below the line at the bottom and electronically sign. The CDI & [facility] Coding staff will review the response and follow-up if needed. Please note: Queries are made part of the Legal Health Record. If you have any questions, please contact the author of this message via ITS. Dr. Iram Vincent Failure to thrive is documented in the H&P 07/14 and in Internal Med Progress notes 07/05 & 07/16 History/Risk Factors: 74-year-old female is a direct admit from Cancer Center due to failure to thrive. The patient has mild intermittent nausea, decreased appetite with a fifteen-pound weight loss in two weeks. Clinical Indicators: Medical history: Metastatic breast cancer, recent admission with Uti, malnourished and sepsis. Labs 07/15: Na 135; K 3.0; Phos 2.7; Wbc 2.6 Current BMI: 25 Dietary Consult 07/15: Appetite: poor duration of 1 3 months. Physical Findings: underweight with mild clavicle muscle wasting. Estimated Nutritional Needs Current weight used: Energy formula 25-30 Kcals/Kg; Energy needs 3702-0540 Kcal Estimated Protein Needs Current weight: Estimated protein range grams/k.5- 2.0; Estimated protein needs grams/day: 90-120 Estimated Fluid needs: Fluid formula: 1ml/Kcal; Estimated Fluid needs mls/day 4066-3796 Nutritional Diagnosis: Clinical unintended weight loss; Related to decreased intake; evidenced by 22kg weight loss over one month. Treatment: Monitor PO and supplement intake. Dietary Consult: See above Supplements: Ensure BID Medication: 07/14 Marinol 5mg PO with supper In your professional opinion, can you please clarify if these findings signify one of the following conditions? Mild Protein-Calorie Malnutrition Moderate Protein-Calorie Malnutrition Severe Protein-Calorie Malnutrition Other condition, please specify Unable to determine (Last Revision: December 2018) MTDD
--- NOTE | 2020-07-16 17:02 | CDI ---
Documentation Clarification Form Date: 07/16/2020 04:42:03 PM From: Jacqueline Aleman RN CCDS Admit Date: 07/14/2020 05:50:00 PM Patient Name: Kyara Cantrell Visit Number: [id number] Discharge Date: ATTENTION: The Clinical Documentation Specialists (CDI) and [facility] Coding Staff appreciate your assistance in clarifying documentation. Please respond to the clarification below the line at the bottom and electronically sign. The CDI & [facility] Coding staff will review the response and follow-up if needed. Please note: Queries are made part of the Legal Health Record. If you have any questions, please contact the author of this message via ITS. Dr. Roney Bridges The patient is being treated with Dexamethasone. History/Risk Factors: 74-year-old female presents as direct admit from the cancer center for decreased appetite along with mild intermittent nausea for hospital work up. Medical history Stage IV Breast Cancer with metastasis to bone and Lobular carcinoma. Clinical Indicators: Lab findings 07/14: Wbc 2.9; Lymphocytes 0.7; Na 135; Calcium 8.3; Mag 2.4; LDH 4044; CA 15-3 Antigen 167.2; CA 27-29 464.5; Vit D Hydroxy 29.9 CT Brain 07/15: There appears to be some enhancement along the extra-axial right temporal and inferior temporal lobe with adjacent vasogenic edema suspicious for metastatic disease. Vital Signs07/14: B/P 135/65; HR 77; Temp 97.3 F Oral; RR 17; SpO2 98% ra Heme Oncology Progress Note 07/16: She will remain on leonard, taper will begin once she has been seen by Rad Onc and started on SRS. Treatment: 07/15 Dexamethasone 4mg PO Q8HR In your professional opinion, can you please clarify the treatment of dexamethasone? Cerebral Edema Other, please specify Unable to determine Vasogenic Edema documented in the DCS by Dr Vincent 07/17 (Last Revision: September 2017) MTDD
[2020-07-16] MEDS: LETROZOLE 2.5 MG TAB PO SCH (17:37)
[2020-07-16] MEDS: ESCITALOPRAM 20 MG TAB PO SCH (17:37)
[2020-07-16] MEDS: LORATADINE 10 MG TAB PO SCH (17:37)
[2020-07-17] MEDS: DEXTROSE 5%-0.9% NACL 1,000 ML IV SCH (03:50)
[2020-07-17 05:14] VITALS: BP 114/61; PULSE 69; RESP 18; TEMP 97.5
[2020-07-17] MEDS: PANTOPRAZOLE 40 MG/10 ML VIAL IVP SCH (09:34)
[2020-07-17] MEDS: FLUCONAZOLE 100 MG TAB PO SCH (09:34)
[2020-07-17] MEDS: dexAMETHasone 4 MG TAB PO SCH (09:34)
[2020-07-17] MEDS: ENOXAPARIN 40 MG/0.4 ML SYRINGE SQ SCH (09:35)
--- NOTE | 2020-07-17 12:01 | P.DS ---
Providers Date of admission: 07/14/20 17:50 Expected date of discharge: 07/17/20 Attending physician: Escobar Cunningham MD Consults: 07/14/20 23:32 Consult Physician Routine Consulting Provider: Roney Bridges Consult Reason/Comments: Breast cancer Do you want consulting provider notified?: Already Contacted Primary care physician: [facility] Course: This is a 74-year-old female admitted to the hospital as directed by her oncologist for further evaluation of failure to thrive and concerns about spreading of her underlying malignancy. She was evaluated and admitted for further management of her medical problems noted below. Failure to thrive, in setting of metastatic breast cancer Brain metastasis with surrounding vasogenic edema -Imaging during this admission including MRI of the brain and CT body showed worsening metastatic disease -Patient was started on steroid as prescribed by oncology UTI -Finished 3 day course of IV ceftriaxone in the hospital. Moderate to severe malnutrition -Encouraged to eat small and frequent meals. Protein shake added. Abnormal LFTs -Continue to monitor outpatient Patient will be discharged with home care. She will be living with her daughter. Goals of care discussed with patient and her daughter by oncology team and plan is to continue treatment. She will follow-up with oncology in the office as directed. Patient Condition at Discharge: Poor Plan - Discharge Summary Discharge Rx Participant: No New Discharge Prescriptions: New Dexamethasone [Decadron] 4 mg PO TID #90 tablet Continue Escitalopram [Lexapro] 20 mg PO W/SUPPER Cholecalciferol [Vitamin D3 (25 Mcg = 1000 Iu)] 1,000 unit PO DAILY dronabinoL [Marinol] 5 mg PO W/SUPPER Zinc 50 mg PO DAILY Multivitamins, Thera [Multivitamin (formulary)] 1 tab PO DAILY Letrozole [Femara] 2.5 mg PO W/SUPPER Palbociclib [Ibrance] 125 mg PO W/SUPPER Discontinued Cetirizine HCl [Zyrtec] 10 mg PO W/SUPPER Sulfamethox-Tmp 800-160Mg [Bactrim DS 800-160 mg] 1 tab PO Q12HR 3 Days #6 tab methylPREDNISolone Dose Pack [Medrol Dose Pack] See Taper PO DIRECTED Discharge Medication List Cholecalciferol [Vitamin D3 (25 Mcg = 1000 Iu)] 1,000 unit PO DAILY 07/09/20 [History] Escitalopram [Lexapro] 20 mg PO W/SUPPER 07/09/20 [History] Letrozole [Femara] 2.5 mg PO W/SUPPER 07/09/20 [History] Multivitamins, Thera [Multivitamin (formulary)] 1 tab PO DAILY 07/09/20 [History] Palbociclib [Ibrance] 125 mg PO W/SUPPER 07/09/20 [History] Zinc 50 mg PO DAILY 07/09/20 [History] dronabinoL [Marinol] 5 mg PO W/SUPPER 07/09/20 [History] Dexamethasone [Decadron] 4 mg PO TID #90 tablet 07/16/20 [Rx] Follow up Appointment(s)/Referral(s): [facility], [NON-STAFF] - 1-2 Days Aging,[facility] [NON-STAFF] - As Needed Way,[facility] [NON-STAFF] - As Needed Patient Instructions/Handouts: Dexamethasone (By mouth), Dehydration (DC) Activity/Diet/Wound Care/Special Instructions: activity limited until seen by Dr. Jewell as tolerated Discharge/Stand Alone Forms: Who Do I Call?, [facility] In [facility] Home Discharge Disposition: HOME WITH HOME HEALTH SERVICES
--- NOTE | 2020-07-17 15:49 | P.PN ---
Subjective Progress Note Date: 07/17/20 Principal diagnosis: failure to thrive, metastatic breast cancer stable, solitary brain met Pt was up and had breakfast, sat in chair and is now back in bed for a rest, daughter notes improved mood. Objective - Vital Signs Vital signs: Vital Signs Temp 97.5 F L 07/17/20 04:30 Pulse 69 07/17/20 08:20 Resp 18 07/17/20 08:20 BP 114/61 07/17/20 04:30 Pulse Ox 97 07/17/20 04:30 Intake & Output 07/16/20 07/17/20 07/17/20 18:59 06:59 18:59 Intake Total 1830 1200 Balance 1830 1200 Intake: Intake, IV Titration 1150 1200 Amount Dextrose 5%-0.9% NaCl 1, 1100 1200 000 ml @ 100 mls/hr IV . Q10H ALEX Rx#:[id number] cefTRIAXone 1 gm In 50 Sodium Chloride 0.9% 50 ml @ 100 mls/hr IVPB Q24HR ALEX Rx#:[id number] Oral 680 Other: Voiding Method Toilet Toilet Toilet Diaper Diaper Diaper Incontinent Incontinent Incontinent # Voids 3 3 # Bowel Movements 1 0 - Constitutional General appearance: Present: cooperative, no acute distress, thin - EENT Eyes: Present: anicteric sclerae, EOMI - Respiratory Respiratory: bilateral: diminished - Cardiovascular Rhythm: regular Heart sounds: normal: S1, S2 Abnormal Heart Sounds: Absent: systolic murmur, diastolic murmur, rub, S3 Gall op, S4 Gallop, click, other - Peripheral edema leg Peripheral Edema: bilateral: 1+ - Gastrointestinal General gastrointestinal: Present: normal bowel sounds, soft - Neurologic Neurologic: Present: CNII-XII intact - Musculoskeletal Musculoskeletal: Present: generalized weakness - Psychiatric Psychiatric: Present: A&O x's 3, appropriate affect, intact judgment & insight - Labs CBC & Chem 7: 07/15/20 05:53 07/16/20 06:45 Labs: Microbiology - Last 24 Hours (Table) 07/14/20 20:02 Blood Culture - Preliminary Blood No Growth after 48 hours 07/14/20 20:05 Blood Culture - Preliminary Blood No Growth after 48 hours Assessment and Plan (1) Failure to thrive Status: Acute Priority: High Code(s): NSO4168 - SNOMED Code(s): 60679265 (2) Weakness Status: Acute Priority: High Code(s): R53.1 - WEAKNESS SNOMED Code(s): 25146178 (3) Metastatic breast cancer Status: Chronic Priority: Medium Code(s): C50.919 - MALIGNANT NEOPLASM OF UNSP SITE OF UNSPECIFIED FEMALE BREAST SNOMED Code(s): 612643689 Plan: Tumor markers are stable when compared with last results CT CAP stable. Brain MRI + for met. Cont Femara. Ibrance, resume after completion of abx and SRS to brain met (discussed with daughter, she verbalized understanding) Pt going to complete a course of oral keflex abx. Daughter requested zofran for intermittent nausea. Rx sent Concerns for anxiety during SRS, pt given 3 days of xanax-Rx sent
--- NOTE | 2020-07-18 09:57 | CDI ---
Documentation Clarification Form Date: 07/18/2020 09:37:01 AM From: Jacqueline Aleman RN CCDS Admit Date: 07/14/2020 05:50:00 PM Patient Name: Kyara Cantrell Visit Number: [id number] Discharge Date: 07/17/2020 01:43:00 PM ATTENTION: The Clinical Documentation Specialists (CDI) and [facility] Coding Staff appreciate your assistance in clarifying documentation. Please respond to the clarification below the line at the bottom and electronically sign. The CDI & [facility] Coding staff will review the response and follow-up if needed. Please note: Queries are made part of the Legal Health Record. If you have any questions, please contact the author of this message via ITS. Dr. Iram Vincent Moderate to severe Malnutrition is documented in the DCS 07/17 needs further specificity. History/Risk Factors: 74-year-old female is a direct admit from Cancer Center due to failure to thrive. The patient has mild intermittent nausea, decreased appetite with a fifteen-pound weight loss in two weeks. Clinical Indicators: Medical history: Metastatic breast cancer, recent admission with Uti, malnourished and sepsis. Labs 07/15: Na 135; K 3.0; Phos 2.7; Wbc 2.6 Current BMI: 25 Dietary Consult 07/15: Appetite: poor duration of 1 3 months. Physical Findings: underweight with mild clavicle muscle wasting. Estimated Nutritional Needs Current weight used: Energy formula 25-30 Kcals/Kg; Energy needs 7909-5926 Kcal Estimated Protein Needs Current weight: Estimated protein range grams/k.5- 2.0; Estimated protein needs grams/day: 90-120 Estimated Fluid needs: Fluid formula: 1ml/Kcal; Estimated Fluid needs mls/day 1329-9894 Nutritional Diagnosis: Clinical unintended weight loss; Related to decreased intake: evidenced by 22kg weight loss over one month. Treatment: Monitor PO and supplement intake. Dietary Consult: See above Supplements: Ensure BID In your professional opinion, can you please clarify the type of nutrition? Moderate Malnutrition Severe Malnutrition Other condition, please specify Unable to determine (Last Revision: December 2018) Moderate malnutrition MTDD
== END 2020-07-17 13:43 | disposition home health service (06) | DRG 54 ==
LOC: 5NMEDONC 17:50
PROVIDERS: ADMIT Internal Medicine; ATTEND Internal Medicine
DX: C79.31 Secondary malignant neoplasm of brain (principal); G93.6 Cerebral edema; C79.51 Secondary malignant neoplasm of bone; E44.0 Moderate protein-calorie malnutrition; M48.54XA Collapsed vertebra, not elsewhere classified, thoracic region, initial encounter for fracture; N39.0 Urinary tract infection, site not specified; C50.919 Malignant neoplasm of unspecified site of unspecified female breast; Z68.25 Body mass index [BMI] 25.0-25.9, adult; D64.9 Anemia, unspecified; F32.9 Major depressive disorder, single episode, unspecified; D72.829 Elevated white blood cell count, unspecified; F41.9 Anxiety disorder, unspecified; K75.81 Nonalcoholic steatohepatitis (NASH); R62.7 Adult failure to thrive; Z80.42 Family history of malignant neoplasm of prostate; R11.0 Nausea; Z88.6 Allergy status to analgesic agent; R94.5 Abnormal results of liver function studies; Z79.899 Other long term (current) drug therapy; H66.93 Otitis media, unspecified, bilateral; R26.89 Other abnormalities of gait and mobility; Z98.42 Cataract extraction status, left eye; Z96.1 Presence of intraocular lens; Z96.89 Presence of other specified functional implants
CPT/HCPCS: 36415; 70553; 71046; 71260; 74177; 80053; 81001; 82150; 82306; 82533; 82550; 82607; 82746; 83615; 83690; 83735; 84100; 84443; 85025; 86300; 87040; 87077; 87086; 87186; 93005; 96361; 96365; 96366; 99285